=== PATIENT | female | born 1995 | race Caucasian/White ===

== ENCOUNTER → 2019-05-19 16:05 | Outpatient (CLI) | payer MEDICARE, SELFPAY ==
[2017-04-09 15:54] VITALS: BMI 20.7
== END ==
PROVIDERS: PCP Pediatrics; Referring Provider Otolaryngology; Visit Provider Otolaryngology
DX: J02.9 Acute pharyngitis, unspecified (principal)
CPT/HCPCS: 87804

== ENCOUNTER → 2020-01-02 15:31 | Outpatient (CLI) | payer MEDICARE, SELFPAY ==
[2017-04-09 15:54] VITALS: BMI 20.7
[2020-01-04 20:07] LABS: Chlamydia By Nucleic Acid AMP Negative (Negative)
[2020-01-05 01:54] LABS: Gonococcus By Nucleic Acid AMP Negative (Negative)
== END ==
PROVIDERS: PCP Pediatrics; Visit Provider Family Medicine
DX: Z11.3 Encounter for screening for infections with a predominantly sexual mode of transmission (principal)
CPT/HCPCS: 87491; 87591

== ENCOUNTER 2020-08-20 14:55 | Emergency (ER) | payer MEDICARE, MEDICAID, SELFPAY ==
[2020-08-20 14:57] VITALS: BP 107/58; PULSE 82; RESP 18; TEMP 36.8; O2SAT 98; BMI 20.2
[2020-08-20 15:14] VITALS: BP 109/75; PULSE 85; RESP 16; O2SAT 100
[2020-08-20] MEDS: Ondansetron 4 MG/2 ML Vial IV (15:31)
[2020-08-20] MEDS: Ketorolac 15 MG/ML Vial IV (15:31)
[2020-08-20] MEDS: 0.9% Normal Saline 1,000 ML 999 ML IV (15:35)
[2020-08-20 15:41] LABS: Absolute Lymphocyte Count 1.54 X10^3/uL (0.83-4.51); Absolute Neutrophil Count 2.6 X10^3/uL (2.0-7.7); Basophil# 0.04 X10^3/uL; Basophil% 0.8 % (0-1); Eosinophils% 2.1 % (0-5); Hematocrit 39.5 % (37-47); Lymphocyte # 1.54 X10^3/ul (0.83-4.51); Lymphocyte % 31.8 % (19-41); Mean Corp Hgb Conc 32.9 g/dL (32-36); Mean Corpuscular Hgb 29.4 pg (27.0-32.0); Mean Corpuscular Volume 89.4 fL (81-99); Mean Platelet Vol. 11.7 fl (6.2-12.0); Monocyte# 0.54 X10^3/uL; Monocyte% 11.1 % (0-10); NRBC Flagged by Analyzer 0 % (0-5); Neutrophil # 2.62 X10^3/uL (2.7-7.7); Platelet Count 237 K/mm3 (150-450); RBC Distribution Width CV 11.6 % (11.6-14.6); Red Blood Count 4.42 M/mm3 (4.2-5.4); White Blood Count 4.9 K/mm3 (4.4-11.0)
[2020-08-20 15:58] LABS: Internal QC Validated? YES +Cl - CLEAR BKGD; Pregnancy, Serum, hCG Quali. NEGATIVE Negative
[2020-08-20 16:01] LABS: Anion Gap 2 (5-15); BUN 11 mg/dL (7-18); BUN/Creat Ratio 17.6 RATIO (10-20); Calcium,Total 9.3 mg/dL (8.5-10.1); Chloride 106 mmol/L (98-107); Creatinine, Serum 0.62 mg/dL (0.55-1.02); EST Glomerular Filtration Rate 125 mL/min (>60); Est Glom Filt Rate - Afr Amer 151 mL/min (>60); Estimated Creatinine Clearance 123.08 ml/min; Glucose 92 mg/dL (74-106); Potassium 3.7 mmol/L (3.5-5.1); Sodium Level 138 mmol/L (136-145)
[2020-08-20 16:29] LABS: Bacteria 0 SEEN /hpf (None Seen); Mucous, Urine 0 SEEN /hpf (<or=2+); White Blood Cells 0 SEEN /hpf (0-5)
--- NOTE | 2020-08-20 16:49 | ED.VIS.GI ---
HPI HPI - GI History of Present Illness Chief Complaint: Flank Pain Narrative Narrative: Patient presenting for evaluation secondary to flank pain and abdominal pain. Patient reports that she had a relatively sudden onset of right-sided flank and abdominal pain that started this morning. She describes it as a sharp waxing and waning type pain that really does not have any sort of exacerbating relieving factors. Patient reports that she has urinary urgency, she thinks that she urinated out some clear stuff. She is concerned for the possibility of kidney stone. She denies any fevers. She denies any nausea vomiting or diarrhea associated with this. She is never really had any prior similar episodes in the past. Review of systems otherwise negative. Patient does not believe she is as she has a intrauterine device. PFSH PFSH Home Medications NK 04/09/17 [History Last Taken Unknown] naproxen 500 mg PO BID PRN #20 tab 08/20/20 [Rx Last Taken Unknown] Allergy/AdvReac Type Severity Reaction Status Date / Time No Known Allergies Allergy Verified 08/20/20 14:56 Surgical History History of placement of ear tubes Social History Smoking Status: Never smoker ROS ROS ED Constitutional Constitutional ED: Denies chills or fever(s) ENT ENT ED: Denies sore throat Cardiovascular Cardiovascular: Denies chest pain Respiratory/Chest Respiratory/Chest: Denies cough or dyspnea Gastrointestinal Gastrointestinal: Reports abdominal pain; Denies constipation, diarrhea or nausea Genitourinary Genitourinary ED: Reports urinary frequency and other Details: Flank pain ; Denies dysuria or hematuria Musculoskeletal Musculoskeletal: Denies myalgias Integumentary Denies rash Neurologic Neurologic: Denies paresthesias or weakness Psychiatric Psychiatric: Denies depression Endocrine Endocrinology: Denies polyuria Hematologic/Lymphatic Hematologic/Lymphatic: Denies easy bleeding or easy bruising Allergic/Immunologic Allergic/Immunologic ED: Denies urticaria EXAM Physical Exam Const Vital Signs: 08/20/20 14:57 08/20/20 15:12 08/20/20 15:14 Temperature 98.3 F Temperature Source Temporal Pulse Rate 82 85 Respiratory Rate 18 16 Respiratory Effort Normal Respiratory Pattern Normal Blood Pressure 107/58 L 109/75 Blood Pressure Mean 74 86 Pulse Ox 98 100 Oxygen Delivery Method Room Air Room Air Positive well nourished and well developed General Appearance ED: well developed and NAD HEENT normocephalic and atraumatic Eyes EOMs intact bilaterally General Eye ED: Negative for pale conjunctiva or scleral icterus Neck no lymphadenopathy and supple Resp normal respiratory effort and clear to auscultation bilaterally Cardio regular rate, regular rhythm, no murmurs and peripheral pulses 2+ throughout GI non-tender, non-distended and no masses GI Narrative: Patient complains of pain in the abdomen, but there is no reproducible tenderness to palpation Palpation: soft; Negative for guarding, rigid or rebound tenderness present Back/Spine no CVA tenderness Extremity full ROM General Extremety ED: Negative for edema General Extremity: Negative for edema Neuro moves all extremities and no sensory deficits noted Sensorium / Orientation: alert, oriented to person, oriented to place and oriented to time Motor Exam: strength 5/5 throughout Psych mental status grossly normal Skin Rashes: no rashes MDM MDM MDM Narrative Medical decision making narrative: Patient presented secondary to abdominal and flank pain. She was administered Toradol and Zofran as well as IV fluids. CBC unremarkable, no evidence of leukocytosis or shift. Chemistry shows normal renal function normal electrolytes. test was negative. I performed a bedside ultrasound on the patient, she does not seem to have asymmetric hydronephrosis on the right. Repeat evaluation of the patient at 1645 showed symptomatic improvement and her resting comfortably in the bed speaking on her cell phone to her significant other. The patient's urine is pending at this time. Patient is comfortable and nontoxic, and had flank pain that resolved I believe that she potentially passed kidney stone. Patient's urine will be followed up on by the oncoming physician. At that time the patient will be discharged home with outpatient follow-up with primary care. Lab Data Labs: Laboratory Results - last 24 hr 08/20/20 08/20/20 08/20/20 15:20 15:20 15:20 WBC 4.9 RBC 4.42 Hgb 13.0 Hct 39.5 MCV 89.4 MCH 29.4 MCHC 32.9 RDW Std Deviation 38.0 RDW Coeff of Walter 11.6 Plt Count 237 MPV 11.7 Immature Gran % (Auto) 0.200 Neut % (Auto) 54.0 Lymph % (Auto) 31.8 [place] % (Auto) 11.1 H Eos % (Auto) 2.1 Baso % (Auto) 0.8 Absolute Neuts (auto) 2.6 Absolute Lymphs (auto) 1.54 Nucleated RBC % 0 Sodium 138 Potassium 3.7 Chloride 106 Carbon Dioxide 30.0 Anion Gap 2 L BUN 11 Creatinine 0.62 Estim Creat Clear Calc 123.08 Est GFR (MDRD) Af Amer 151 Est GFR (MDRD) Non-Af 125 BUN/Creatinine Ratio 17.6 Glucose 92 Calcium 9.3 Serum , Qual NEGATIVE Discharge Plan Triage Chief Complaint: Flank Pain ED Provider: Trey Cavazos Dx/Rx/DC Orders Clinical Impression: Acute flank pain Prescriptions: New naproxen 500 mg tablet 500 mg PO BID PRN Qty: 20 RF: 0 No Action NK RF: 0 Primary Care Provider: Thomas Cano Referrals: Thomas Cano DO [Primary Care Provider] - 5-7 Days Disposition Disposition: Home, self care
[2020-08-20 17:11] LABS: Color, Urine Yellow (Yellow); Glucose, Dipstick Normal (Normal); Ketone-Dipstick Negative (Negative); Leukocyte Esterase-Dipstick Negative /ul (Negative); Nitrite-Dipstick Negative (Negative); Occult Blood-Urine 150 /ul (Negative); Protein-Dipstick Negative (Negative); Urine Bilirubin Dipstick Negative (Negative); Urine Clarity Sl. Cloudy (Clear); Urine Urobilinogen Normal (Normal)
[2020-08-20 17:35] LABS: Red Blood Cells-Urine 0-5 SEEN /hpf (0-5); Squamous Epithelial Cells - UA 0-5 SEEN /hpf (5-10)
[2020-08-20 17:54] VITALS: BP 121/81; PULSE 94; RESP 15; O2SAT 98
== END 2020-08-20 17:56 | disposition home or self-care (01) ==
PROVIDERS: Emergency Provider Emergency Medicine; PCP Family Medicine
DX: R10.9 Unspecified abdominal pain (principal); R39.15 Urgency of urination
CPT/HCPCS: 80048; 81001; 84703; 85025; 96374; 96375; 99285; J7030; A4216; J2405

== ENCOUNTER 2021-06-29 17:37 | Emergency (ER) | payer MEDICARE, MEDICAID, SELFPAY ==
[2021-06-29 17:38] VITALS: BP 110/80; PULSE 99; RESP 14; TEMP 36.6; O2SAT 99; BMI 20.4
--- NOTE | 2021-06-29 17:50 | ED.VIS.GI ---
HPI HPI - GI History of Present Illness Chief Complaint: Abd Pain Detail of Chief Complaint: Abdominal pain and diarrhea that started this morning Informant: patient Narrative Narrative: Patient presents to the emergency department with complaint of diarrhea that started this morning. Patient states that she has had more than 10 watery stools and she describes some diffuse abdominal cramping. She is had some nausea but no vomiting. Patient denies any fever. She describes some mild dysuria. Patient is on the Mirena contraceptive and has not missed any periods. Patient denies sick contacts. She denies eating undercooked foods. She denies blood in her stool or black tarry stool. PFSH PFSH Home Medications naproxen 500 mg PO BID PRN #20 tab 08/20/20 [Rx Last Taken Unknown] methylphenidate HCl 18 mg PO DAILY 06/29/21 [History Last Taken Unknown] ondansetron 4 mg PO Q8H PRN PRN #10 tab 06/29/21 [Rx Last Taken Unknown] risperidone 1 mg PO DAILY 06/29/21 [History Last Taken Unknown] Allergy/AdvReac Type Severity Reaction Status Date / Time No Known Allergies Allergy Verified 06/29/21 17:38 Surgical History History of placement of ear tubes Social History Smoking Status: Never smoker ROS ROS ED Constitutional Constitutional ED: Reports systems reviewed and no addt'l complaints, except as documented; Denies body ache(s), change in weight or chills Eyes Eyes: Denies acute decrease in peripheral vision, change in vision, double vision or loss of vision ENT ENT ED: Reports none; Denies ear pain, lip swelling, loss taste/smell, neck pain, otalgia or sore throat Cardiovascular Cardiovascular: Reports none; Denies abdominal pain, chest pain with activity, leg edema, lightheadedness, palpitations, rapid heart rate or syncope Respiratory/Chest Respiratory/Chest: Reports none; Denies change in mental status, dry cough, dyspnea, hemoptysis, shortness of breath at rest or shortness of breath with exertion Gastrointestinal Gastrointestinal: Reports none, abdominal pain, diarrhea and nausea; Denies change in stool character, hematemesis, hematochezia, melena, rectal bleeding or vomiting Genitourinary Genitourinary ED: Reports none and dysuria; Denies abdominal discomfort, anuria, genital pain or polyuria Musculoskeletal Musculoskeletal: Reports none; Denies arthralgias, back pain, difficulty walking, extremity pain, muscle weakness or myalgias Integumentary Reports none; Denies abscess or rash Neurologic Neurologic: Reports none; Denies abnormal gait, confusion, focal weakness, frequent falls, headache(s), loss of vision, numbness, paresthesias, radicular pain, vertigo or weakness Psychiatric Psychiatric: Reports systems reviewed and no addt'l complaints, except as documented and none; Denies behavioral changes, confusion, difficulty concentrating, hallucinations, suicidal ideation, tactile hallucinations or visual hallucinations Endocrine Endocrinology: Denies none, cold intolerance, excessive sweating, fatigue or heat intolerance Hematologic/Lymphatic Hematologic/Lymphatic: Reports none; Denies anemia, easy bleeding or easy bruising Allergic/Immunologic Allergic/Immunologic ED: Denies as per HPI, none, lip swelling, mouth swelling, throat swelling, tongue swelling or hives EXAM Physical Exam Const Vital Signs: 06/29/21 17:38 Temperature 97.9 F Temperature Source Temporal Pulse Rate 99 Respiratory Rate 14 Blood Pressure 110/80 Blood Pressure Mean 90 Pulse Ox 99 Oxygen Delivery Method Room Air Positive well nourished and well developed General Appearance ED: well developed and NAD HEENT Reports TM's clear and moist mucous membranes normocephalic and atraumatic; Negative for trauma or tenderness Tympanic Membrane ED: Yes TM's clear Eyes PERRL and EOMs intact bilaterally General Eye ED: Negative for pale conjunctiva or scleral icterus Neck no lymphadenopathy, supple and no JVD General: Negative for tenderness Chest Wall inspection of chest normal and palpation of chest normal Chest: Negative for tenderness Resp normal respiratory effort and clear to auscultation bilaterally Effort and Inspection: Negative for respiratory distress or pain with movement Auscultation: Negative for rhonchi, wheezes or diminished lung sounds Cardio regular rate, regular rhythm, S1 normal heart sound, S2 normal heart sound and no murmurs Peripheral Pulses: pulses 2+ throughout GI normal to inspection, nondistended, normoactive bowel sounds, soft to palpation, non-distended and no masses GI Narrative: Patient has some mild diffuse tenderness on palpation. There is no rebound, rigidity, or peritoneal signs. Back/Spine no CVA tenderness and no thoracic nor lumbar tenderness Extremity normal to inspection General Extremety ED: Negative for edema General Extremity: Negative for edema Neuro oriented x3, CN's II-XII intact bilaterally, no sensory deficits noted and gait normal Sensorium / Orientation: awake, alert, oriented to person, oriented to place and oriented to time Motor Exam: strength 5/5 throughout and strength abnormal Psych mental status grossly normal Skin no rashes or lesions noted and no wounds MDM MDM MDM Narrative Medical decision making narrative: I recommended an IV and basic labs on arrival. Patient states she does not do well with IVs and does not want to have blood work or an IV. I did give her Zofran 4 mg ODT. Patient also received Imodium. Her abdomen is benign on exam. Suspect likely a viral gastroenteritis. I will write her a prescription for Zofran and advised her to take Imodium. Patient to return if persistent vomiting, diarrhea, dehydration, or worsening abdominal pain. Lab Data Attestation: I reviewed the patient's lab results. Labs: Laboratory Results - last 24 hr 06/29/21 17:55 Urine Color Yellow Urine Clarity Sl. Cloudy Urine pH 5.0 Ur Specific [place] 1.020 Urine Protein 30 H Urine Glucose (UA) Normal Urine Ketones Negative Urine Occult Blood Negative Urine Nitrite Negative Urine Bilirubin Negative Urine Urobilinogen Normal Ur Leukocyte Esterase Negative Urine RBC 5-10 SEEN Urine WBC 0-5 SEEN Ur Squamous Epith Cells 0-5 SEEN Urine Bacteria RARE Urine Mucus 1+ Discharge Plan Triage Chief Complaint: Abd Pain ED Provider: Julia Adkins Dx/Rx/DC Orders Clinical Impression: Viral gastroenteritis Instructions: ED Gastroenteritis, Viral (Adult) Prescriptions: New ondansetron [ondansetron] 4 MG tablet 4 mg PO Q8H PRN PRN (Reason: Nausea) Qty: 10 RF: 0 No Action naproxen 500 mg tablet 500 mg PO BID PRN Qty: 20 RF: 0 methylphenidate HCl 18 mg tablet extended release 24hr 18 mg PO DAILY RF: 0 risperidone 1 mg tablet 1 mg PO DAILY RF: 0 Primary Care Provider: Thomas Cano Referrals: Thomas Cano DO [Primary Care Provider] - 3-5 Days Disposition Disposition: Home, Self Care
[2021-06-29] MEDS: Ondansetron ODT 4 MG Tablet PO (18:01)
[2021-06-29] MEDS: Loperamide 2 MG Capsule PO (18:01)
[2021-06-29 18:11] LABS: Color, Urine Yellow (Yellow); Glucose, Dipstick Normal (Normal); Ketone-Dipstick Negative (Negative); Leukocyte Esterase-Dipstick Negative /ul (Negative); Nitrite-Dipstick Negative (Negative); Occult Blood-Urine Negative /ul (Negative); Protein-Dipstick 30 mg/dl (Negative); Urine Bilirubin Dipstick Negative (Negative); Urine Clarity Sl. Cloudy (Clear); Urine Urobilinogen Normal (Normal)
[2021-06-29 18:37] LABS: Bacteria RARE /hpf (None Seen); Mucous, Urine 1+ /hpf (<or=2+); Squamous Epithelial Cells - UA 0-5 SEEN /hpf (5-10); White Blood Cells 0-5 SEEN /hpf (0-5)
[2021-06-29 18:38] LABS: Red Blood Cells-Urine 5-10 SEEN /hpf (0-5)
== END 2021-06-29 19:03 | disposition home or self-care (01) ==
PROVIDERS: Emergency Provider Emergency Medicine; PCP Family Medicine; Visit Provider Emergency Medicine
DX: A08.4 Viral intestinal infection, unspecified (principal); Z79.899 Other long term (current) drug therapy
CPT/HCPCS: 81001; 99282

== ENCOUNTER 2021-09-27 23:17 | Emergency (ER) | payer MEDICARE, MEDICAID, SELFPAY ==
[2021-09-27 23:18] VITALS: BP 109/66; PULSE 81; RESP 16; TEMP 36.7; O2SAT 99; BMI 21.2
--- NOTE | 2021-09-27 23:24 | EDS_ITS ---
HPI HPI - URI History of Present Illness Chief Complaint: Other, Pain/Inj Informant: patient and parent Onset/Context/Timing Onset: Yesterday Context: Gradual Onset Timing: Continuous Quality: Throat pain/swelling with odynophagia Location: Entire throat Current Severity: Moderate Maximum Severity: Moderate Worsened by: Swallowing Relieved by: - (Nothing has not tried anything) Associated Symptoms Associated Symptoms: Negative for Headache, Nausea, Vomiting, Diarrhea, Shortness of Breath, Nonproductive cough, Hemoptysis and Productive Cough Narrative Narrative: Patient works at [employer], as a result of that she gets tested for COVID twice weekly and the last time she was tested was 2 days ago. Started getting a sore throat yesterday and now it is worse to the point of feeling like things are swollen. She is able to pass liquids but it is painful. She denies dyspnea, cough, fevers, chills, headache, nausea/vomiting. No new runny nose or congestion or earache. ROS ROS ED Constitutional Constitutional ED: Denies chills or fever(s) ENT ENT ED: Reports odynophagia, sore throat and throat swelling; Denies ear pain, loss taste/smell, nasal congestion, rhinorrhea or tongue swelling Cardiovascular Cardiovascular: Denies chest pain or palpitations Respiratory/Chest Respiratory/Chest: Reports cough; Denies dyspnea Gastrointestinal Gastrointestinal: Denies abdominal pain, diarrhea, nausea or vomiting Genitourinary Genitourinary ED: Denies dysuria or hematuria Musculoskeletal Musculoskeletal: Reports neck pain; Denies myalgias Integumentary Denies abscess or rash Neurologic Neurologic: Denies headache(s), paresthesias or weakness Psychiatric Psychiatric: Denies depression or suicidal thoughts Endocrine Endocrinology: Denies polydipsia or polyuria PFSH PFSH Medical History no medical history no medical history Home Medications naproxen 500 mg PO BID PRN #20 tab 08/20/20 [Rx Last Taken Unknown] methylphenidate HCl 18 mg PO DAILY 06/29/21 [History Last Taken Unknown] ondansetron 4 mg PO Q8H PRN PRN #10 tab 06/29/21 [Rx Last Taken Unknown] risperidone 1 mg PO DAILY 06/29/21 [History Last Taken Unknown] risperidone 3 mg PO QHS 09/27/21 [History Last Taken Unknown] Allergy/AdvReac Type Severity Reaction Status Date / Time No Known Allergies Allergy Verified 06/29/21 17:38 Surgical History History of placement of ear tubes Social History Smoking Status: Never smoker EXAM Physical Exam Const Vital Signs: 09/27/21 23:18 09/27/21 23:27 Temperature 98.1 F Temperature Source Oral Pulse Rate 81 Respiratory Rate 16 Respiratory Pattern Normal Blood Pressure 109/66 Blood Pressure Mean 80 Pulse Ox 99 Oxygen Delivery Method Room Air Positive well nourished and well developed General Appearance ED: well developed and NAD HEENT Reports moist mucous membranes HEENT Narrative: Hot potato voice without stridor or respiratory distress. Diffusely erythematous posterior oropharynx and bilateral palatine tonsils which are symmetric and not edematous, uvula is midline. No trismus. Tongue normal, no sublingual edema. normocephalic and atraumatic Throat: Negative for posterior oropharynx abnormal Eyes PERRL and EOMs intact bilaterally Neck supple and no meningeal signs Neck Narrative: Bilateral symmetric submandibular tender lymphadenopathy. Supple neck. No posterior lymphadenopathy. Resp normal respiratory effort and clear to auscultation bilaterally Cardio no murmurs Rate: regular rate Rhythm: regular rhythm Neuro oriented x3, CN's II-XII intact bilaterally and no sensory deficits noted Sensorium / Orientation: alert Motor Exam: strength 5/5 throughout Skin Lesions: no lesions Rashes: no rashes MDM MDM MDM Narrative Medical decision making narrative: Rapid COVID was performed and was negative. I did a rapid strep swab, it came out of the lab techs machine is invalid. The nurse repeated the swab and sent it down with the same result. Therefore the lab is going to send it for culture only. In the meantime, she does not have exudates or a high Centor score (her score is 2/4 since she has no fevers), so antibiotic treatment would only be indicated if her culture returns positive. Given that, I will give her a dose of Decadron 12 mg orally which hopefully will help significantly with her symptoms. I am not running a PCR since she gets COVID testing twice weekly. Discharge Plan Triage Chief Complaint: Other, Pain/Inj ED Provider: Bruce Chung Dx/Rx/DC Orders Clinical Impression: Acute pharyngitis Instructions: ED Pharyngitis, Report Pending Prescriptions: No Action naproxen 500 mg tablet 500 mg PO BID PRN Qty: 20 RF: 0 methylphenidate HCl 18 mg tablet extended release 24hr 18 mg PO DAILY RF: 0 risperidone 1 mg tablet 1 mg PO DAILY RF: 0 ondansetron [ondansetron] 4 MG tablet 4 mg PO Q8H PRN PRN (Reason: Nausea) Qty: 10 RF: 0 risperidone 3 mg tablet 3 mg PO QHS RF: 0 Primary Care Provider: Thomas Cano Referrals: Thomas Cano DO [Primary Care Provider] - 1 Week if not improving Activity Restrictions/Additional Instructions: Your strep culture is pending and will return in 2 days or so, if positive you will be called in an antibiotic. If negative, you will not be notified, this is more likely. The dose of steroids you received should help but takes 8-10 hours to start working but will then last for about a week. Disposition Disposition: Home, Self Care
[2021-09-28] MEDS: dexAMETHasone 4 MG Tablet 12 MG PO (00:54)
[2021-09-28 00:58] VITALS: BP 116/62; PULSE 68; RESP 16; O2SAT 97
== END 2021-09-28 01:00 | disposition home or self-care (01) ==
PROVIDERS: Emergency Provider Emergency Medicine; PCP Family Medicine; Visit Provider Emergency Medicine
DX: J02.9 Acute pharyngitis, unspecified (principal)
CPT/HCPCS: 87811; 87880; 99283

== ENCOUNTER 2023-01-12 18:05 | Emergency (ER) | payer MEDICARE, MEDICAID, SELFPAY ==
[2023-01-12 18:06] VITALS: BP 124/81; PULSE 111; RESP 18; TEMP 36.6; O2SAT 98; BMI 24.9
--- NOTE | 2023-01-12 18:19 | EX.ED.DYSGE1 ---
HPI History of Present Illness Chief Complaint: General Illness Informant: patient Narrative Narrative: Patient had symptoms that started today less than 12 hours worth of nausea, dry heaving, poor appetite and p.o. intake, diffuse sharp abdominal pains, myalgias all over along with some low-grade fevers over 100. She has been in contact with others that have had similar symptoms lately. No history of any abdominal surgeries. [facility] Medical History (Updated 01/12/23 @ 20:[address] Bruce Chung MD) ADHD Kidney stone Home Medications naproxen 500 mg tablet 500 mg PO BID PRN #20 tabs 08/20/20 [Rx Last Taken Unknown] methylphenidate HCl 18 mg tablet,extended release 24 hr 18 mg PO DAILY 06/29/21 [History Last Taken Unknown] ondansetron 4 mg disintegrating tablet 4 mg PO Q8H PRN PRN Nausea #10 tabs 06/29/21 [Rx Last Taken Unknown] risperidone 1 mg tablet 1 mg PO DAILY 06/29/21 [History Last Taken Unknown] risperidone 3 mg tablet 3 mg PO QHS 09/27/21 [History Last Taken Unknown] dicyclomine 10 mg capsule 20 mg (2 x 10 mg) PO Q6H PRN PRN abdominal pain #20 CAPSULES 01/12/23 [Rx Last Taken Unknown] ondansetron 4 mg disintegrating tablet 8 mg (2 x 4 mg) PO Q8H PRN PRN Nausea #20 tabs 01/12/23 [Rx Last Taken Unknown] Allergy/AdvReac Type Severity Reaction Status Date / Time No Known Allergies Allergy Verified 06/29/21 17:38 Surgical History History of placement of ear tubes Social History Smoking Status: Never smoker ROS ROS ED Constitutional Constitutional ED: Reports anorexia, fever(s) and malaise; Denies chills Eyes Eyes: Denies change in vision or diplopia ENT ENT ED: Denies rhinorrhea or sore throat Cardiovascular Cardiovascular: Denies chest pain or palpitations Respiratory/Chest Respiratory/Chest: Denies cough or dyspnea Gastrointestinal Gastrointestinal: Reports nausea and vomiting; Denies abdominal pain, diarrhea, hematemesis, hematochezia or melena Genitourinary Genitourinary ED: Denies dysuria, hematuria or urinary frequency Musculoskeletal Musculoskeletal: Reports back pain; Denies neck pain Integumentary Denies abscess or rash Neurologic Neurologic: Denies headache(s), paresthesias or weakness Psychiatric Psychiatric: Denies anxiety or suicidal thoughts EXAM Physical Exam Const Vital Signs: 01/12/23 18:06 01/12/23 18:11 Temperature 97.8 F Temperature Source Temporal Pulse Rate 111 H Respiratory Rate 18 Respiratory Pattern Normal Blood Pressure 124/81 H Blood Pressure Mean 95 Pulse Ox 98 Oxygen Delivery Method Room Air Positive well nourished and well developed General Appearance ED: well developed and NAD HEENT Reports moist mucous membranes normocephalic and atraumatic Eyes PERRL and EOMs intact bilaterally Neck full ROM and supple Resp normal respiratory effort and clear to auscultation bilaterally Cardio regular rate, regular rhythm and no murmurs GI non-distended GI Narrative: Mild diffuse lower abdominal tenderness without guarding or rebound or palpable mass, distention. Auscultation: normoactive bowel sounds Palpation: soft Back/Spine no CVA tenderness General Back: other FROM Extremity normal to inspection General Extremety ED: Negative for edema, pulses abnormal or tenderness General Extremity: Negative for edema or pulses abnormal Neuro oriented x3, CN's II-XII intact bilaterally and no sensory deficits noted Sensorium / Orientation: awake and alert Motor Exam: strength 5/5 throughout Skin no rashes or lesions noted and no wounds MDM MDM MDM Narrative Medical decision making narrative: Obtain some basic labs and urinalysis which are unremarkable, urine negative, patient feeling better after IV fluids, Zofran, dicyclomine. Suspect viral gastritis, high prevalence in the community at the current time anecdotally. Supportive care advised, will give her a work note as well as prescriptions for the above medicines. Lab Data Attestation: I reviewed the patient's lab results. Labs: Laboratory Results - last 24 hr 01/12/23 01/12/23 18:55 19:00 WBC 6.7 RBC 4.46 Hgb 12.9 Hct 39.6 MCV 88.8 MCH 28.9 MCHC 32.6 RDW Std Deviation 37.8 RDW Coeff of [place] 11.7 Plt Count 193 MPV 11.7 Immature Gran % (Auto) 0.400 Neut % (Auto) 81.5 H Lymph % (Auto) 6.3 L [place] % (Auto) 11.2 H Eos % (Auto) 0.3 Baso % (Auto) 0.3 Absolute Neuts (auto) 5.5 Absolute Lymphs (auto) 0.42 L Nucleated RBC % 0 Differential Comment SCANNED Sodium 136 Potassium 3.6 Chloride 104 Carbon Dioxide 25.0 Anion Gap 7 BUN 10 Creatinine 0.68 Estim Creat Clear Calc 121.92 Est GFR (MDRD) Af Amer 134 Est GFR (MDRD) Non-Af 111 BUN/Creatinine Ratio 14.7 Glucose 90 Calcium 9.3 Urine Color Yellow Urine Clarity Clear Urine pH 7.0 Ur Specific [place] 1.010 Urine Protein 15 H Urine Glucose (UA) Normal Urine Ketones 15 H Urine Occult Blood 50 H Urine Nitrite Negative Urine Bilirubin Negative Urine Urobilinogen Normal Ur Leukocyte Esterase 25 H Urine RBC 0-5 SEEN Urine WBC 0-5 SEEN Ur Squamous Epith Cells 0-5 SEEN Urine Bacteria 0 SEEN Urine Mucus 0 SEEN Urine Test Negative Discharge Plan Triage Chief Complaint: General Illness ED Provider: Bruce Chung Dx/Rx/DC Orders Clinical Impression: Diffuse abdominal pain, Viral gastritis Instructions: ED Gastritis (Adult) Prescriptions: New dicyclomine 10 mg capsule 20 mg PO Q6H PRN PRN (Reason: abdominal pain) Qty: 20 0RF ondansetron [ondansetron] 4 mg tablet,disintegrating 8 mg PO Q8H PRN PRN (Reason: Nausea) Qty: 20 0RF No Action naproxen 500 mg tablet 500 mg PO BID PRN Qty: 20 0RF methylphenidate HCl 18 mg tablet extended release 24hr 18 mg PO DAILY Patient Comments: TAKE 1 TABLET DAILY IN THE MORNING NEEDED risperidone 1 mg tablet 1 mg PO DAILY Patient Comments: TAKE 1 TABLET BY MOUTH EVERY DAY IN THE MORNING ondansetron [ondansetron] 4 MG tablet 4 mg PO Q8H PRN PRN (Reason: Nausea) Qty: 10 0RF risperidone 3 mg tablet 3 mg PO QHS Patient Comments: TAKE 1 TABLET BY MOUTH EVERY DAY Stand Alone Forms: ED Work / School Excuse Primary Care Provider: Thomas Cano Referrals: Thomas Cano DO [Primary Care Provider] - 3-5 Days if not improving Disposition Disposition: Home, Self Care
[2023-01-12] MEDS: 0.9% Normal Saline (1000mL) 1,000 ML 999 ML IV (18:55)
[2023-01-12] MEDS: Ondansetron 4 MG/2 ML Vial IV (18:55)
[2023-01-12] MEDS: Dicyclomine 10 MG Capsule 20 MG PO (18:55)
[2023-01-12 19:08] LABS: Bacteria 0 SEEN /hpf (None Seen); Mucous, Urine 0 SEEN /hpf (<or=2+)
[2023-01-12 19:09] LABS: Absolute Lymphocyte Count 0.42 X10^3/uL (0.83-4.51); Absolute Neutrophil Count 5.5 X10^3/uL (2.0-7.7); Basophil# 0.02 X10^3/uL; Basophil% 0.3 % (0-1); Eosinophil# 0.02 X10^3/uL; Eosinophils% 0.3 % (0-5); Hematocrit 39.6 % (37-47); Hemoglobin 12.9 g/dL (12.0-15.0); Lymphocyte # 0.42 X10^3/ul (0.83-4.51); Lymphocyte % 6.3 % (19-41); Mean Corp Hgb Conc 32.6 g/dL (32-36); Mean Corpuscular Hgb 28.9 pg (27.0-32.0); Mean Corpuscular Volume 88.8 fL (81-99); Mean Platelet Vol. 11.7 fl (6.2-12.0); Monocyte# 0.75 X10^3/uL; Monocyte% 11.2 % (0-10); NRBC Flagged by Analyzer 0 % (0-5); Neutrophil # 5.46 X10^3/uL (2.7-7.7); Neutrophil % 81.5 % (47-70); POSITIVE DIFFERENTIAL YES; Platelet Count 193 K/mm3 (150-450); RBC Distribution Width CV 11.7 % (11.6-14.6); RBC Distribution Width SD 37.8 fl (35.1-43.9); Red Blood Count 4.46 M/mm3 (4.2-5.4); White Blood Count 6.7 K/mm3 (4.4-11.0)
[2023-01-12 19:11] LABS: Color, Urine Yellow (Yellow); Glucose, Dipstick Normal (Normal); Ketone-Dipstick 15 mg/dl (Negative); Leukocyte Esterase-Dipstick 25 /ul (Negative); Nitrite-Dipstick Negative (Negative); Occult Blood-Urine 50 /ul (Negative); Protein-Dipstick 15 mg/dl (Negative); Urine Bilirubin Dipstick Negative (Negative); Urine Clarity Clear (Clear); Urine Urobilinogen Normal (Normal)
[2023-01-12 19:11] LABS: Differential Indicated SCAN CRITERIA MET
[2023-01-12 19:22] LABS: Anion Gap 7 (5-15); BUN 10 mg/dL (7-18); BUN/Creat Ratio 14.7 RATIO (10-20); Calcium,Total 9.3 mg/dL (8.5-10.1); Chloride 104 mmol/L (98-107); Creatinine, Serum 0.68 mg/dL (0.55-1.02); EST Glomerular Filtration Rate 111 mL/min (>60); Est Glom Filt Rate - Afr Amer 134 mL/min (>60); Estimated Creatinine Clearance 121.92 ml/min; Glucose 90 mg/dL (74-106); Potassium 3.6 mmol/L (3.5-5.1); Sodium Level 136 mmol/L (136-145)
[2023-01-12 19:32] LABS: Differential Comment SCANNED
[2023-01-12 19:33] LABS: Red Blood Cells-Urine 0-5 SEEN /hpf (0-5); Squamous Epithelial Cells - UA 0-5 SEEN /hpf (5-10); White Blood Cells 0-5 SEEN /hpf (0-5)
[2023-01-12 19:36] LABS: Internal QC Validated? YES +Cl - CLEAR BKGD; Pregnancy, Urine Negative Negative
== END 2023-01-12 20:21 | disposition home or self-care (01) ==
PROVIDERS: Emergency Provider Emergency Medicine; PCP Family Medicine; Visit Provider Emergency Medicine
DX: A08.4 Viral intestinal infection, unspecified (principal); R10.84 Generalized abdominal pain
CPT/HCPCS: 80048; 81001; 81025; 85025; 96374; 99282; J7030; A4216; J2405

== ENCOUNTER → 2023-05-06 | Outpatient (CLI) | payer MEDICARE, MEDICAID, SELFPAY ==
--- OUTSIDE RECORDS SUMMARY | 2023-05-06 16:13 | XMS RPT_ITS | CCD ---
Author Name Unknown Address [address] [place] [address] Organization [facility] Care Team Providers Care Twist Packer Name Role Phone FLORA KHAN Unavailable Unavailable REFERRED, SELF Unavailable Unavailable FLORA KHAN Unavailable Unavailable FLORA KHAN Unavailable Unavailable REFERRED, SELF Unavailable Unavailable FLORA KHAN A Unavailable Unavailable FLORA KHAN A Unavailable Unavailable REFERRED, SELF Unavailable Unavailable FLORA KHAN A Unavailable Unavailable ROBERT CUEVAS Unavailable Unavailable REFERRED, SELF Unavailable Unavailable FLORA KHAN Unavailable Unavailable FLORA KHAN Unavailable Unavailable REFERRED, SELF Unavailable Unavailable FLORA KHAN Unavailable Unavailable Rosie Cano DO Primary Care Provider Rosie Cano DO Primary Care Provider ROSIE CANO Primary Care Unavailable ROSIE CANO Primary Care Unavailable LAURA ALVARADO Referring Unavailable ROSIE CANO Primary Care Unavailable LAURA ALVARADO Attending Unavailable ROSIE CANO Primary Care Unavailable Medications Current Medications Medication Drug Class(es) Dates Sig (Normalized) Sig (Original) levonorgestrel 0.285890 mg/hr intrauterine system (5 sources) Progestin, Progestin-containi ng Intrauterine Device Start: 03-22-2018 End: 03-22-2023 levonorgestrel (MIRENA) 20 mcg/24 hours (5 yrs) 52 mg IUD 1 Each by INTRAUTERINE route continuous. 0 03/22/2018 03/22/2023 Active Completed/Discontinued Medications Medication Drug Class(es) Dates Sig (Normalized) Sig (Original) 24 hr methylphenidate hydrochloride 36 mg extended release oral tablet (7 sources) Central Nervous System Stimulant Start: 05-26-2005 CONCERTA 36 MG TAB Take one(1) tablet daily. 0 05/26/2005 Active Problems Active Problems Problem Classification Problem Date Documented Da te Episodic/Chronic Other upper respiratory infections (1 source) Acute upper respiratory infection; Translations: [Acute upper respiratory infection, unspecified] 03-29-2023 Episodic Past or Other Problems Problem Classification Problem Date Documented Date Episodic/Chronic Contraceptive and procreative management (5 sources) Intrauterine contraceptive device in situ; Translations: [Encounter for routine checking of intrauterine contraceptive device] Onset: 08-18-2022 Episodic Immunizations and screening for infectious disease (3 sources) Suspected disease caused by 2019-nCoV; Translations: [Suspected COVID-19 virus infection] Onset: 08-18-2022 Episodic Other screening for suspected conditions (not mental disorders or infectious disease) (2 sources) Patient encounter status; Translations: [Encounter for screening for malignant neoplasm of cervix] Onset: 08-18-2022 Episodic Sprains and strains (7 sources) Sprain of talofibular ligament of right ankle; Translations: [Sprain of other ligament of right ankle, initial encounter] Onset: 05-24-2018 05-24-2018 Episodic Results Test Name Value Interpretation Reference Range Facil ity Vital Signs Date Time Vital Sign Value Performing Clinician Faci lity 03-29-2023 11:22-0500 Body temperature 98.49 [degF] Oleksandr Pastrana MD Work Phone: [facility] 03-29-2023 11:22-0500 Body weight 76.93 kg Oleksandr Pastrana MD Work Phone: [facility] 03-29-2023 11:22-0500 Diastolic blood pressure 72 mm[Hg] Oleksandr Pastrana MD Work Phone: [facility] 03-29-2023 11:22-0500 Heart rate 86 /min Oleksandr Pastrana MD Work Phone: [facility] 03-29-2023 11:22-0500 Respiratory rate 18 /min Oleksandr Pastrana MD Work Phone: [facility] 03-29-2023 11:22-0500 SaO2% (BldA) [Mass fraction] 98 % Oleksandr Pastrana MD Work Phone: [facility] 03-29-2023 11:22-0500 Systolic blood pressure 112 mm[Hg] Oleksandr Pastrana MD Work Phone: [facility] 08-18-2022 16:10-0400 Body weight 75.84 kg Laura Alvarado MD Work Phone: [facility] 08-18-2022 16:10-0400 Diastolic blood pressure 82 mm[Hg] Laura Alvarado MD Work Phone: [facility] 08-18-2022 16:10-0400 Systolic blood pressure 120 mm[Hg] Laura Alvarado MD Work Phone: [facility] 11-17-2021 10:49-0400 Body temperature 97.59 [degF] Zakiya Yaz [employer].CHILD AND ADOLESCENT PSYCHIATRIST Work Phone: [facility] 11-17-2021 10:49-0400 Body weight 59.88 kg Zakiya Yaz [employer].CHILD AND ADOLESCENT PSYCHIATRIST Work Phone: [facility] 11-17-2021 10:49-0400 Diastolic blood pressure 70 mm[Hg] Zakiya Yaz [employer].CHILD AND ADOLESCENT PSYCHIATRIST Work Phone: [facility] 11-17-2021 10:49-0400 Heart rate 66 /min Zakiya Yaz [employer].CHILD AND ADOLESCENT PSYCHIATRIST Work Phone: [facility] 11-17-2021 10:49-0400 Respiratory rate 16 /min Zakiya Yaz [employer].CHILD AND ADOLESCENT PSYCHIATRIST Work Phone: [facility] 11-17-2021 10:49-0400 SaO2% (BldA) [Mass fraction] 99 % Zakiya Yaz [employer].CHILD AND ADOLESCENT PSYCHIATRIST Work Phone: [facility] 11-17-2021 10:49-0400 Systolic blood pressure 122 mm[Hg] Zakiya Yaz [employer].CHILD AND ADOLESCENT PSYCHIATRIST Work Phone: [facility] Encounters Encounter Date Encounter Type Care Provider Facility Start: 03-30-2023 Telephone encounter Peace Bernie Pyle [employer].CHILD AND ADOLESCENT PSYCHIATRIST Work Phone: [facility] Procedures Date Procedure Procedure Detail Performing Clinician Start: 08-27-2022 Us transvaginal Laura Alvarado MD Work Phone: Start: 08-18-2022 Iadna chlamydia trachomatis amplified probe tq Laura Alvarado MD Work Phone: Start: 08-18-2022 Urine test visual color cmprsn meths Laura Alvarado MD Work Phone: Plan of Treatment Date Care Activity Detail Author Start: 08-18-2025 Pap Testing Pap Testing [facility] Start: 08-18-2025 Screening for malign ant neoplasm of cervix Pap Testing [facility] Start: 12-18-2022 Covid-19 Vaccine () Covid-19 Vaccine () [facility] Start: 12-18-2022 Influenza vaccination [facility] Start: 04-19-2022 DEPRESSION ASSESSMENT DEPRESSION ASS ESSMENT [facility] Start: 12-18-2021 Influenza vaccination INFLUENZA (#1) [facility] Start: 11-17-2021 End: 12-01-2021 SARS-CoV-2 (COVID-19) RNA [Presence] in Respiratory specimen by NUHA with probe detection [facility] Work Phone: Immunizations Immunization Date Immunization Notes Care Provider Fa [facility] 02-04-1998 diphtheria, tetanus toxoids and acellular pertussis vaccine Zakiya Mukherjee [employer] Work Phone: [facility] Work Phone: 02-04-1998 haemophilus influenz ae type b vaccine, HbOC conjugate Zakiya Mukherjee [employer] Work Phone: [facility] Work Phone: 02-04-1998 trivalent poliovirus vaccine, live, oral Zakiyamoriah Mukherjee [employer].CHILD AND ADOLESCENT PSYCHIATRIST Work Phone: [facility] Work Phone: 11-06-1997 measles, mumps and rubella virus vaccine Zakiya Mukherjee [employer].CHILD AND ADOLESCENT PSYCHIATRIST Work Phone: [facility] Work Phone: 08-03-1997 hepatitis B vaccine, pediatric or pediatric/adolescent dosage Zakiyamoriah Mukherjee [employer].CHILD AND ADOLESCENT PSYCHIATRIST Work Phone: [facility] Work Phone: 05-23-1997 diphtheria, tetanus toxoids and acellular pertussis vaccine Zakiya Yaz [employer].CHILD AND ADOLESCENT PSYCHIATRIST Work Phone: [facility] Work Phone: 05-23-1997 haemophilus influenz ae type b vaccine, HbOC conjugate Zakiya Yaz [employer].[facility] Work Phone: [facility] Work Phone: 03-07-1997 diphtheria, tetanus toxoids and acellular pertussis vaccine Zakiya Yaz [employer].CHILD AND ADOLESCENT PSYCHIATRIST Work Phone: [facility] Work Phone: 03-07-1997 haemophilus influenz ae type b vaccine, HbOC conjugate Zakiya Yaz [employer].[facility] Work Phone: [facility] Work Phone: 03-07-1997 trivalent poliovirus vaccine, live, oral Zakiya Yaz [employer].[facility] Work Phone: [facility] Work Phone: 01-01-1997 diphtheria, tetanus toxoids and acellular pertussis vaccine Zakiya Yaz [employer].[facility] Work Phone: [facility] Work Phone: 01-01-1997 haemophilus influenz ae type b vaccine, HbOC conjugate Zakiya Yaz [employer].[facility] Work Phone: [facility] Work Phone: 01-01-1997 trivalent poliovirus vaccine, live, oral Zakiya Yaz [employer].CHILD AND [employer]OLESCENT PSYCHIATRIST Work Phone: [facility] Work Phone: 1996 hepatitis B vaccine, pediatric or pediatric/adolescent dosage Zakiya Yaz [employer] Work Phone: [facility] Work Phone: 1996 hepatitis B vaccine, pediatric or pediatric/adolescent dosage Zakiya Yaz [employer] Work Phone: [facility] Work Phone: Payers Date Payer Category Payer Unknown [employer] HMO [id number] 2020-Present [phone] [address] [place] [address] HMO [id number] 2020 Unknown [employer]M [employer] S [employer] BL[employer]IELD AN[employer]M MED[employer] HMO [id number] 2020-Present [phone] [address] [place] [address] HMO [id number] 2020 Unknown [id number] 2018 Medicaid MEDICAID [facility] MEDICAID [id number] 2018-Present [phone] [address] [place] [address] Medicaid [id number] 2018 Medicaid MEDICAID [facility] MEDICAID [id number] 2018-Present [phone] [address] [place] [address] Medicaid [id number] 2018 Medicaid [id number] Medicare [id number] Unknown [id number] Social History Date Type Detail Facility Start: 08-18-2022 Tobacco smoking stat [facility] Never smoked tobacco [facility] Work Phone: Start: 11-17-2021 End: 03-29-2023 Alcohol intake Current non-drinker of alcohol (finding) [facility] Start: 1995 Sex Assigned At Not on file [facility] Start: 11-07-2021 End: 11-17-2021 Exposure to SARS-CoV-2 (event) Not sure [facility] Work Phone: Start: 08-18-2022 Tobacco use and exposure Smokeless tobacco non-user [facility] Start: 08-18-2022 End: 01-14-2023 History of Social function [facility] Start: 08-18-2022 End: 01-14-2023 Tobacco use panel [facility] National Score (1-100), lower number is lower risk 92 [facility] Clinical Notes 11-17-2021 to 03-30-2023 Telephone Encounter - Mony Nguyen LPN - 03/30/2023 8:48 AM ESTTelephone Encounter - Emily Reyes - 03/30/2023 7:47 AM ESTTelephone Encounter - Emily Reyes - 03/30/2023 7:47 AM EST Note Date & Type Note Facility 03-30-2023 Miscellaneous Notes Patient returned call and went over results, notes from express care provider with understanding. Left message for patient to return call. ----- Message from Pecae Ellis APRN.CNP sent at 03/30/2023 7:35 AM EST ----- Please advise patient the test for RSV was positive. RSV is a respiratory virus, supportive care at home is indicated. If Kalpana develops worsening symptoms or experiences any respiratory difficulty, she should be seen in ER. COVID and flu were negative. Peace Ellis APRN.CNP documented in this encounter [facility] 03-29-2023 Note HNO ID: [id number] Author: Oleksandr Pastrana MD Service: ? Author Type: Physician Type: Progress Notes Filed: 03/29/2023 11:43 AM Note Text: Patient presents with: Sore Throat: Congestion x3 days HPI: Feeling sick for 3 days. Positive symptoms: some Cough and wheezing, Sore throat, Nasal Congestion, Rhinorrhea, Post nasal drainage, malaise, fatigue Negative symptoms: Fever, Chills, Body Aches, Headache, Nausea, Vomiting, Diarrhea, OTC: none. Had COVID illness in December. 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 PAST MEDICAL HISTORY Diagnosis Date ADHD (attention deficit hyperactivity disorder) MEDICATIONS: Current Outpatient Medications Medication Sig risperiDONE (RISPERDAL) 1 mg tablet CONCERTA 36 MG TAB Take one(1) tablet daily. No current facility-administered medications for this visit. ALLERGIES: ALLERGIES No Known Allergies VITALS: BP 112/72 Pulse 86 Temp 36.9 ?C (98.5 ?F) Resp 18 Wt 76.9 kg (169 lb 9.6 oz) LMP (LMP Unknown) SpO2 98% PHYSICAL EXAM: GEN: mildly ill appearing HEENT: PERRL, EOMI, conjunctiva clear Ears: canals clear. TMs without erythema, bulge, or effusion Sinuses: non-tender frontal sinus, non-tender maxillary sinuses Throat: moist mucous membranes, mild erythema, no exudate Neck: supple, no thyromegaly, no lymphadenopathy HEART: regular rate and rhythm, no murmurs LUNGS: clear to auscultation, no wheezes or crackles, no increased WOB ASSESSMENT/PLAN: 1. URI, acute - ICD9: 465.9, ICD10: J06.9 - suspect viral URI - Discussed supportive care treatment with rest, cold medicine, and analgesia. - COVID AND INFLUENZA A/B AND RSV NAAT, ROUTINE Oleksandr Pastrana MD [facility] 03-29-2023 History of Presen t illness Narrative Patient presents with: Sore Throat: Congestion x3 days HPI: Feeling sick for 3 days. Positive symptoms: some Cough and wheezing, Sore throat, Nasal Congestion, Rhinorrhea, Post nasal drainage, malaise, fatigue Negative symptoms: Fever, Chills, Body Aches, Headache, Nausea, Vomiting, Diarrhea, OTC: none. Had COVID illness in December. 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 PAST MEDICAL HISTORY Diagnosis Date ADHD (attention deficit hyperactivity disorder) MEDICATIONS: Current Outpatient Medications Medication Sig risperiDONE (RISPERDAL) 1 mg tablet CONCERTA 36 MG TAB Take one(1) tablet daily. No current facility-administered medications for this visit. ALLERGIES: ALLERGIES No Known Allergies VITALS: BP 112/72 Pulse 86 Temp 36.9 C (98.5 F) Resp 18 Wt 76.9 kg (169 lb 9.6 oz) LMP (LMP Unknown) SpO2 98% PHYSICAL EXAM: GEN: mildly ill appearing HEENT: PERRL, EOMI, conjunctiva clear Ears: canals clear. TMs without erythema, bulge, or effusion Sinuses: non-tender frontal sinus, non-tender maxillary sinuses Throat: moist mucous membranes, mild erythema, no exudate Neck: supple, no thyromegaly, no lymphadenopathy HEART: regular rate and rhythm, no murmurs LUNGS: clear to auscultation, no wheezes or crackles, no increased WOB ASSESSMENT/PLAN: 1. URI, acute - ICD9: 465.9, ICD10: J06.9 - suspect viral URI - Discussed supportive care treatment with rest, cold medicine, and analgesia. - COVID & INFLUENZA A/B & RSV NAAT, ROUTINE Oleksandr Pastrana MD documented in this encounter [facility] 01-15-2023 Miscellaneous Notes Patient notified of results, verbalized understanding of instructions given. Lilia Vásquez MA Please call and let patient know she was positive for COVID-19. Recommend quarantine for 5 days from first day of symptoms and a mask for another 5 days after that. If not improving follow-up with PCP. documented in this encounter [facility] 01-14-2023 Note HNO ID: [id number] Author: Lance Ramirez APRN.CHILD AND ADOLESCENT PSYCHIATRIST Service: ? Author Type: Nurse Practitioner Type: Progress Notes Filed: 01/14/2023 2:06 PM Note Text: Subjective HPI Nontoxic-appearing female presents urgent care requesting PCR COVID-19 testing. Patient states tested positive at home with a COVID-19 test as well as positive at work. States on Wednesday she was seen in the ED diagnosed with gastritis. Did have a fever then. Presents today for evaluation. States overall feels well. Mild nasal congestion. No OTC medication use. States COVID-19 is present in her workplace. 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 Denies any fever body aches chills productive cough chest pain shortness of breath pleuritic pain hemoptysis nausea vomiting abdominal pain change in bowel or bladder habits. Past medical history prescription medication use and allergies reviewed. .Patient presents with: Fever: Congestion x 3 days History reviewed. No pertinent past medical history. History reviewed. No pertinent surgical history. ALLERGIES Patient has no known allergies. MEDICATIONS levonorgestrel (MIRENA) 20 mcg/24 hours (5 yrs) 52 mg IUD 1 Each by INTRAUTERINE route continuous. RISPERIDONE 0.5 MG TAB take one tablet po daily at bedtime. risperidone 0.25 mg ORAL Tab takes one tablet twice daily po CONCERTA 36 MG TAB Take one(1) tablet daily. polyethylene glycol 3350(MIRALAX 100 % ORAL POWDER) 1/2 to 1 capful daily as needed (Patient not taking: No sig reported) History reviewed. No pertinent family history. Social History Tobacco Use Smoking status: Never Smokeless tobacco: Never Vaping Use Vaping Use: Some days Substance Use Topics Alcohol use: No Drug use: Never BP 111/75 Pulse 69 Temp 36.7 ?C (98 ?F) Resp 16 Wt 73.8 kg (162 lb 9.6 oz) LMP (LMP Unknown) SpO2 97% Review of Systems Constitutional: Negative for chills, fever and malaise/fatigue. HENT: Positive for congestion. Negative for ear discharge, ear pain, sinus pain and sore throat. Eyes: Negative for blurred vision, pain, discharge and redness. Respiratory: Negative for cough, hemoptysis, sputum production, shortness of breath, wheezing and stridor. Cardiovascular: Negative for chest pain. Gastrointestinal: Negative for abdominal pain, diarrhea, nausea and vomiting. Musculoskeletal: Negative for myalgias. Skin: Negative for itching and rash. Neurological: Negative for dizziness and headaches. Objective Physical Exam Constitutional: General: She is not in acute distress. Appearance: She is not toxic-appearing. HENT: Head: Normocephalic. Nose: Nose normal. Mouth/Throat: Mouth: Mucous membranes are moist. Pharynx: Oropharynx is clear. No oropharyngeal exudate or posterior oropharyngeal erythema. Eyes: Pupils: Pupils are equal, round, and reactive to light. Cardiovascular: Rate and Rhythm: Normal rate. Pulmonary: Effort: Pulmonary effort is normal. No respiratory distress. Breath sounds: No wheezing, rhonchi or rales. Musculoskeletal: Cervical back: Normal range of motion. Lymphadenopathy: Cervical: No cervical adenopathy. Skin: General: Skin is warm and dry. Neurological: General: No focal deficit present. Mental Status: She is alert. ASSESSMENT/PLAN: 1. Suspected COVID-19 virus infection - ICD9: V01.79, ICD10: Z20.822 - COVID NAAT, UPPER RESPIRATORY, ROUTINE Diagnosis suspected COVID-19. PCR test obtained. [facility] return to work work guidelines discussed. Work note provided. Patient was educated on supportive therapies. Patient will follow up with primary care provider as needed. Patient was instructed to immediately proceed to emergency room for any new, worsening, or symptoms lasting longer than anticipated. The patient's clinical presentation is otherwise unremarkable at this time. Based on exam and clinical finding, the patient is stable for discharge. Plan of care was discussed with patient. Patient verbalizes understanding and agrees to plan of care. This note was generated using [employer] software. It may contain errors in wording, punctuation, or spelling. Lance Ramirez APRN.[facility] 08-27-2022 Note HNO ID: [id number] Author: RT Rosina(R) Service: Radiology Author Type: Technologist Type: Progress Notes Filed: 08/27/2022 4:26 PM Note Text: Radiology Service Progress Note PATIENT NAME: Kalpana Segovia DATE OF SERVICE: August 27, 2022 TIME: 4:26 PM PATIENT IDENTITY VERIFICATION COMPLETED USING TWO (2) IDENTIFIERS: Name and Date of confirmed by patient verbally. FALL SCREENING: Has the patient had 2 falls in the last year or 1 fall with injury or currently using an Ambulatory Assistive Device (Walker, Cane, Wheelchair, Crutches, etc.)? No PATIENT GENDER DATA: Female. status: : No status: N/A PATIENT RELEVANT IMPLANT DATA REVIEWED: Not Applicable RADIOLOGY DEPARTMENT: Ultrasound PERIPHERAL IV DATA: Not applicable SIGNED BY: Radha Bowie Rdms August 27, 2022 4:26 PM [facility] 08-27-2022 History of Presen t illness Narrative Radiology Service Progress Note PATIENT NAME: Kalpana Segovia DATE OF SERVICE: August 27, 2022 TIME: 4:26 PM PATIENT IDENTITY VERIFICATION COMPLETED USING TWO (2) IDENTIFIERS: Name and Date of confirmed by patient verbally. FALL SCREENING: Has the patient had 2 falls in the last year or 1 fall with injury or currently using an Ambulatory Assistive Device (Walker, Cane, Wheelchair, Crutches, etc.)? No PATIENT GENDER DATA: Female. status: : No status: N/A PATIENT RELEVANT IMPLANT DATA REVIEWED: Not Applicable RADIOLOGY DEPARTMENT: Ultrasound PERIPHERAL IV DATA: Not applicable SIGNED BY: Radha Bowie Rdms August 27, 2022 4:26 PM documented in this encounter [facility] 08-18-2022 Note HNO ID: [id number] Author: Laura Alvarado MD Service: ? Author Type: Physician Type: Progress Notes Filed: 08/18/2022 5:01 PM Note Text: Kalpana is a 26 year old who presents for an annual gynecologic exam. Menses: occ light spotting - Mirena IUD. Contraception: IUD HPV vaccine: unsure Last Pap: today History of abnormal pap: No Last mammogram: never OB History No obstetric history on file. Material Manager History LMP: LMP Unknown, IUD Age at Menarche: Age at First : Age at Menopause: Material Manager History Comments: Sexual Activity: Yes; Male Contraception: I.U.D. History reviewed. No pertinent past medical history.No past surgical history on file.No family history on file.SOCIAL HISTORY Social History Tobacco Use Smoking status: Never Smokeless tobacco: Never Vaping Use Vaping Use: Some days Substance Use Topics Alcohol use: No Drug use: Never REVIEW OF SYSTEMS Abdomen: No abdominal pain, nausea, vomiting, diarrhea, or constipation. No bloating, early satiety, indigestion, or increased flatulence. Bladder: No dysuria, gross hematuria, urinary frequency, urinary urgency, or incontinence. Breast: No breast lumps, nipple d/c, overlying skin changes, redness or skin retraction. Allergies and current medication updated:Yes EXAM: BP 120/82 Wt 167 lb 3.2 oz (75.8kg) GENERAL: pleasant, female in no apparent distress BREAST: soft, non-tender, symmetric, no dominant mass, normal nipple-areolar complex, no lymphadenopathy, and no nipple discharge CHEST: Normal inspiratory effort ABDOMEN: soft, non-tender, and no masses PELVIC: external genitalia normal, normal Bartholin's glands, urethra, [place]'s glands, no vulvar lesions, no cervical lesions, good vaginal support, physiologic discharge present, normal appearing perineal body and perianal region BIMANUAL: uterus normal size, shape and consistency, no adnexal masses, and non-tender RECTOVAGINAL: deferred. NEURO: alert and oriented x3,exam grossly non-focal EXTREMITIES: normal ASSESSMENT/PLAN: 1) Health maintenance: Pap done with HPV. Nutrition, exercise and routine health maintenance exams reviewed. 2) Contraception: IUD. Contraceptive options reviewed and information provided. Check pelvic US to confirms IUD location as unable to see strings. 3) STD screening: Accepted STD check for Gonorrhea and Chlamydia with trich 4) Follow up one year or sooner as needed Laura Alvarado MD [facility] 08-18-2022 History of Presen t illness Narrative Kalpana is a 26 year old who presents for an annual gynecologic exam. Menses: occ light spotting - Mirena IUD. Contraception: IUD HPV vaccine: unsure Last Pap: today History of abnormal pap: No Last mammogram: never OB History No obstetric history on file. Material Manager History LMP: LMP Unknown, IUD Age at Menarche: Age at First : Age at Menopause: Material Manager History Comments: Sexual Activity: Yes; Male Contraception: I.U.D. History reviewed. No pertinent past medical history.No past surgical history on file.No family history on file.SOCIAL HISTORY Social History Tobacco Use Smoking status: Never Smokeless tobacco: Never Vaping Use Vaping Use: Some days Substance Use Topics Alcohol use: No Drug use: Never REVIEW OF SYSTEMS Abdomen: No abdominal pain, nausea, vomiting, diarrhea, or constipation. No bloating, early satiety, indigestion, or increased flatulence. Bladder: No dysuria, gross hematuria, urinary frequency, urinary urgency, or incontinence. Breast: No breast lumps, nipple d/c, overlying skin changes, redness or skin retraction. Allergies and current medication updated:Yes EXAM: BP 120/82 Wt 167 lb 3.2 oz (75.8kg) GENERAL: pleasant, female in no apparent distress BREAST: soft, non-tender, symmetric, no dominant mass, normal nipple-areolar complex, no lymphadenopathy, and no nipple discharge CHEST: Normal inspiratory effort ABDOMEN: soft, non-tender, and no masses PELVIC: external genitalia normal, normal Bartholin's glands, urethra, [place]'s glands, no vulvar lesions, no cervical lesions, good vaginal support, physiologic discharge present, normal appearing perineal body and perianal region BIMANUAL: uterus normal size, shape and consistency, no adnexal masses, and non-tender RECTOVAGINAL: deferred. NEURO: alert and oriented x3,exam grossly non-focal EXTREMITIES: normal ASSESSMENT/PLAN: 1) Health maintenance: Pap done with HPV. Nutrition, exercise and routine health maintenance exams reviewed. 2) Contraception: IUD. Contraceptive options reviewed and information provided. Check pelvic US to confirms IUD location as unable to see strings. 3) STD screening: Accepted STD check for Gonorrhea and Chlamydia with trich 4) Follow up one year or sooner as needed Laura Alvarado MD documented in this encounter [facility] 11-18-2021 Miscellaneous Notes Phone call placed patient advised (see prior provider encounter) Patient verbalized understanding, agreed with plan of care. Janet Vega LPN You tested positive for COVID-19 Follow the CDC guidelines for isolation: 1. Everyone, regardless of vaccination status, should stay home for 5 days. 2. If you have no symptoms or your symptoms are resolving after 5 days, you can leave your house. 3. Continue to wear a mask around others for 5 additional days. If you have a fever, continue to stay home until your fever resolves, even if it is longer than 5 days. Please monitor your symptoms, and for any worrisome symptoms, call your primary care provider or schedule a visit with [facility]. A test is not recommended to return to work/school when meeting the above criteria. documented in this encounter [facility] 11-17-2021 Instructions Zakiya Mukherjee APRN.CNP - 11/17/2021 11:00 AM EDT covid test ordered You will be notified in 24 -48 hours, results available on [employer] Home isolation until covid results are back Rest, increase water intake Motrin or Tylenol as needed for fever or pain. Salt water gargles, chloraseptic spray or lozenges as needed for sore throat. Warm beverages, honey. Nasal saline spray as needed Cool mist humidifier at night Tylenol (generic acetaminophen) 500 mg-2 tabs every 8 hrs. as needed for fever and aches Ibuprofen 600 mg (3-200mg tablets) every 6 hours -Sudafed (generic is fine), behind the counter, 2x30 mg tabs twice daily as needed for congestion -Mucinex (generic is fine) Guaifenesin 1200 mg twice daily to help with cough and to thin out mucus * Seek medical care immediately, call 911, go to ER if you have chest pain, difficulty breathing, shortness of breath, inability to swallow. documented in this encounter [facility] 11-17-2021 History of Presen t illness Narrative Subjective The history is provided by the patient and a parent. No english language learner tutor was used. HPI Kalpana Segovia is a 26 year old female who presents today for CC of covid symptoms , rapid positive, needs testing Symptoms include: Fever (?100.4F): No or Chills: No Cough: Yes Shortness of breath: No or Difficulty breathing: No Fatigue: Yes Muscle aches: Yes Headache: No New loss of smell or taste: No Sore throat: No Nasal congestion: Yes or Rhinorrhea: Yes Nausea: No or Vomiting: No Diarrhea: No OTC meds/remedies that patient has tried: acetaminophen. High risk category assessment No high risk factors Exposures: Sick contacts? Yes Family or close contacts with confirmed/probable COVID-19 in last 14 days? Yes BP 122/70 Pulse 66 Temp 36.4 C (97.6 F) Resp 16 Wt 59.9 kg (132 lb) LMP 02/07/2018 SpO2 99% Social History Tobacco Use Smoking status: Never Smoker Smokeless tobacco: Never Used Substance Use Topics Alcohol use: No Drug use: Not on file No past medical history on file. I have confirmed and edited as necessary, the [facility] Review of Systems Constitutional: Positive for malaise/fatigue. Negative for chills and fever. HENT: Positive for congestion and sinus pain. Negative for ear pain and sore throat. Respiratory: Positive for cough. Negative for sputum production, shortness of breath and wheezing. Cardiovascular: Negative for chest pain. Gastrointestinal: Negative for abdominal pain, diarrhea, nausea and vomiting. Musculoskeletal: Positive for myalgias. Neurological: Positive for headaches. Objective Physical Exam Vitals and nursing note reviewed. HENT: Head: Normocephalic and atraumatic. Right Ear: Tympanic membrane, ear canal and external ear normal. Left Ear: Tympanic membrane, ear canal and external ear normal. Nose: Mucosal edema, congestion and rhinorrhea present. Mouth/Throat: Pharynx: Uvula midline. Posterior oropharyngeal erythema (mild) present. No oropharyngeal exudate. Cardiovascular: Rate and Rhythm: Normal rate and regular rhythm. Heart sounds: Normal heart sounds. Pulmonary: Effort: Pulmonary effort is normal. Breath sounds: Normal breath sounds. Lymphadenopathy: Head: Right side of head: No submental, submandibular or tonsillar adenopathy. Left side of head: No submental, submandibular or tonsillar adenopathy. Cervical: No cervical adenopathy. Skin: General: Skin is warm and dry. Neurological: Mental Status: She is alert. Psychiatric: Mood and Affect: Affect normal. ASSESSMENT/PLAN: 1. Suspected COVID-19 virus infection - ICD9: V01.79, ICD10: Z20.822 Home isolation Testing ordered Comfort measures discussed - see patient instructions. When to seek higher level of care Notified in 24-48 hours with results, available on mychart - 2019 CORONAVIRUS Diagnosis and treatment plan were discussed and questions were answered to the patient's satisfaction. Pt acknowledged understanding of concepts and follow up plan. Specific signs and symptoms that would indicate the need for higher level of care were discussed in detail warranting prompt ER evaluation. Zakiya Mukherjee APRN.CNP documented in this encounter [facility] Diagnosis Encounter for screening for malignant neoplasm of cervix- Primary Screening for malignant neoplasm of the cervix Encounter for routine checking of intrauterine contraceptive device (IUD) Intrauterine device surveillance Surveillance of previously prescribed intrauterine contraceptive device Screen for STD (sexually transmitted disease) Screening examination for venereal disease [facility] Diagnosis Intrauterine device surveillance Surveillance of previously prescribed intrauterine contraceptive device [facility] Diagnosis URI, acute- Primary Acute upper respiratory infections of unspecified site documented in this encounter [facility] for referral (narrative)* Diagnostic Procedure Only (Routine) - Authorized Specialty Diagnoses / Procedures Referred By Contac t Referred To Contact US IMAGING Diagnoses Intrauterine device surveillance Procedures US FEMALE PELVIS TRANSVAG US TRANSVAGINAL Laura Alvarado MD [address] [place] [address] Us Imaging Referral ID Status Reason Start Date Expiration Date Visits Requested Visits Authorized [id number] Authorized Auto-Generat ed Referral 08/18/2022 09/17/2023 1 1 [facility] for referral (narrative)* Diagnostic Procedure Only (Routine) - Closed Specialty Diagnoses / Procedures Referred By Contlizzette agarwal Referred To Contact US IMAGING Diagnoses Intrauterine device surveillance Procedures US FEMALE PELVIS TRANSVAG US TRANSVAGINAL Laura Alvarado MD [address] [place] [address] [place] [address] Referral ID Status Reason Start Date Expiration Date V isits Requested Visits Authorized [id number] Closed Auto-Generate d Referral 08/18/2022 09/17/2023 1 1 [facility] for visit Narrative* Diagnostic Procedure Only (Routine) - Closed Specialty Diagnoses / Procedures Referred By Contlizzette t Referred To Contact US IMAGING Diagnoses Intrauterine device surveillance Procedures US FEMALE PELVIS TRANSVAG US TRANSVAGINAL Laura Alvarado MD [address] [place] [address] [place] [address] Referral ID Status Reason Start Date Expiration Date V isits Requested Visits Authorized [id number] Closed Auto-Generate d Referral 08/18/2022 09/17/2023 1 1 [facility] Summary Purpose Family History No Family History Records FoundNo Family History Records Found Advance Directives No Advanced Directives Records FoundNo Advanced Directives Records Found Health Concerns Infection Onset Date Last Indicated Resolved Time COVID-19 Rule-Out 11/17/2021 11/17/2021 Infection Onset Date Last Indicated Resolved Time COVID-19 Confirmed 11/17/2021 11/17/2021 Infection Onset Date Last Indicated Resolved Time COVID-19 Rule-Out 01/14/2023 01/14/2023 01/15/2023 7:11 AM EDT COVID-19 Confirmed 01/14/2023 01/14/2023 Infection Onset Date Last Indicated Resolved Time RSV 03/29/2023 03/29/2023 Additional Source Comments INFORMATION SOURCE (unrecogn ized section and content) DATE CREATED AUTHOR AUTHOR'S ORGANIZ ATION 03/31/2023 [facility] Source Comments (unrecognize d section and content) In the event this informatio n is protected by the Federal Confidentiality of Alcohol and Drug Abuse Patient Records regulations: The Federal rules restrict any use of the information to criminally investigate or prosecute any alcohol or drug abuse patient.[facility] event this information is protected by the Federal Confidentiality of Alcohol and Drug Abuse Patient Records regulations: The Federal rules restrict any use of the information to criminally investigate or prosecute any alcohol or drug abuse patient.[facility] the event this information is protected by the Federal Confidentiality of Alcohol and Drug Abuse Patient Records regulations: The Federal rules restrict any use of the information to criminally investigate or prosecute any alcohol or drug abuse patient.[facility] the event this information is protected by the Federal Confidentiality of Alcohol and Drug Abuse Patient Records regulations: The Federal rules restrict any use of the information to criminally investigate or prosecute any alcohol or drug abuse patient.[facility] the event this information is protected by the Federal Confidentiality of Alcohol and Drug Abuse Patient Records regulations: The Federal rules restrict any use of the information to criminally investigate or prosecute any alcohol or drug abuse patient.[facility] the event this information is protected by the Federal Confidentiality of Alcohol and Drug Abuse Patient Records regulations: The Federal rules restrict any use of the information to criminally investigate or prosecute any alcohol or drug abuse patient.[facility] the event this information is protected by the Federal Confidentiality of Alcohol and Drug Abuse Patient Records regulations: The Federal rules restrict any use of the information to criminally investigate or prosecute any alcohol or drug abuse patient.[facility] Reason for Visit (unrecogniz ed section and content) Reason Comments Results Reason Comments Yearly Exam Reason Comments Sore Throat Congestion x3 days Care Teams (unrecognized sec tion and content) Twist Packer Relationship Specialty Start Date End Date Rosie Cano DO [address] [place], [place] [id number] PCP - General Family Practice 07/12/17 Twist Packer Relationship Specialty Start Date End Date Rosie Cano DO [address] [place] [id number] PCP - General Family Medicine 07/12/17 Twist Packer Relationship Specialty Start Date End Date Rosie Cano DO [address] [place], [place] [id number] PCP - General Family Medicine 07/12/17 Twist Packer Relationship Specialty Start Date End Date Rosie Cano DO [address] [place] [address] PCP - General Family Medicine 07/12/17 Twist Packer Relationship Specialty Start Date End Date Rosie Cano DO [address] [place] [address] PCP - [facility] 07/12/17 Twist Packer Relationship Specialty Start Date End Date Rosie Cano DO [address] [place] [id number] PCP - [facility] 07/12/17 FOR RECORDS PERTAINING TO PATIENTS WHO ARE OR HAVE BEEN ENROLLED IN A CHEMICAL DEPENDENCY/SUBSTANCEABUSE PROGRAM, SOME INFORMATION MAY BE OMITTED. This clinical summary was aggregated from multiple sources. Caution should be exercised in using it in the provision of clinical care. This summary normalizes information from multiple sources, and as a consequence, information in this document may materially change the coding, format and clinical context of patient data. In addition, data may be omitted in some cases. CLINICAL DECISIONS SHOULD BE BASED ON THE PRIMARY CLINICAL RECORDS. [facility] [employer] [facility]. provides no warranty or guarantee of the accuracy or completeness of information in this document.
[2023-05-06 17:49] LABS: Absolute Lymphocyte Count 2.03 X10^3/uL (0.83-4.51); Absolute Neutrophil Count 4.6 X10^3/uL (2.0-7.7); Basophil# 0.05 X10^3/uL; Basophil% 0.7 % (0-1); Eosinophil# 0.08 X10^3/uL; Eosinophils% 1.1 % (0-5); Hematocrit 37.2 % (37-47); Hemoglobin 11.9 g/dL (12.0-15.0); Lymphocyte # 2.03 X10^3/ul (0.83-4.51); Mean Corpuscular Hgb 28.4 pg (27.0-32.0); Mean Corpuscular Volume 88.8 fL (81-99); Mean Platelet Vol. 12.3 fl (6.2-12.0); Monocyte# 0.74 X10^3/uL; Monocyte% 9.8 % (0-10); NRBC Flagged by Analyzer 0 % (0-5); Neutrophil # 4.61 X10^3/uL (2.7-7.7); Neutrophil % 61.1 % (47-70); Platelet Count 236 K/mm3 (150-450); RBC Distribution Width CV 11.9 % (11.6-14.6); RBC Distribution Width SD 38.1 fl (35.1-43.9); Red Blood Count 4.19 M/mm3 (4.2-5.4); White Blood Count 7.5 K/mm3 (4.4-11.0)
[2023-05-06 17:57] LABS: Color, Urine Yellow (Yellow); Glucose, Dipstick Normal (Normal); Ketone-Dipstick 5 mg/dl (Negative); Leukocyte Esterase-Dipstick 25 /ul (Negative); Nitrite-Dipstick Negative (Negative); Occult Blood-Urine 25 /ul (Negative); Protein-Dipstick 15 mg/dl (Negative); Specific Gravity, Urine 1.015 (1.002-1.030); Urine Bilirubin Dipstick Negative (Negative); Urine Clarity Clear (Clear); Urine Urobilinogen Normal (Normal); Urine pH 6.5 (5.0 - 8.0)
[2023-05-06 18:00] LABS: Internal QC Validated? YES +Cl - CLEAR BKGD; Pregnancy, Serum, hCG Quali. NEGATIVE Negative
[2023-05-06 18:22] LABS: AST(SGOT) 14 U/L (15-37); Alanine Aminotransfer ALT/SGPT 17 U/L (13-56); Albumin, Serum 4.1 g/dL (3.2-5.0); Alkaline Phosphatase 54 U/L (45-117); Anion Gap 7 (5-15); BUN 13 mg/dL (7-18); BUN/Creat Ratio 17.5 RATIO (10-20); Calcium,Total 9.3 mg/dL (8.5-10.1); Chloride 107 mmol/L (98-107); Creatinine, Serum 0.74 mg/dL (0.55-1.02); EST Glomerular Filtration Rate 100 mL/min (>60); Est Glom Filt Rate - Afr Amer 121 mL/min (>60); Glucose 90 mg/dL (74-106); Potassium 3.7 mmol/L (3.5-5.1); Protein, Total 8.1 g/dL (6.4-8.2); Sodium Level 138 mmol/L (136-145)
== END | disposition home or self-care (01) ==
LOC: BFHLAB 15:50
PROVIDERS: PCP Family Medicine; Visit Provider Family Medicine
DX: R10.9 Unspecified abdominal pain (principal)
CPT/HCPCS: 36415; 80053; 81002; 84703; 85025

== ENCOUNTER → 2024-02-14 | Outpatient (CLI) | payer MEDICARE, MEDICAID, SELFPAY ==
[2024-02-14 18:12] LABS: Absolute Lymphocyte Count 1.65 X10^3/uL (0.83-4.51); Absolute Neutrophil Count 3.9 X10^3/uL (2.0-7.7); Basophil# 0.04 X10^3/uL; Basophil% 0.6 % (0-1); Eosinophil# 0.06 X10^3/uL; Hematocrit 38.9 % (37-47); Hemoglobin 12.6 g/dL (12.0-15.0); Lymphocyte # 1.65 X10^3/ul (0.83-4.51); Lymphocyte % 26.3 % (19-41); Mean Corp Hgb Conc 32.4 g/dL (32-36); Mean Corpuscular Hgb 28.4 pg (27.0-32.0); Mean Corpuscular Volume 87.6 fL (81-99); Mean Platelet Vol. 12.7 fl (6.2-12.0); Monocyte# 0.65 X10^3/uL; Monocyte% 10.4 % (0-10); NRBC Flagged by Analyzer 0 % (0-5); Neutrophil # 3.85 X10^3/uL (2.7-7.7); Neutrophil % 61.2 % (47-70); Platelet Count 208 K/mm3 (150-450); RBC Distribution Width CV 12.1 % (11.6-14.6); RBC Distribution Width SD 39.1 fl (35.1-43.9); Red Blood Count 4.44 M/mm3 (4.2-5.4); White Blood Count 6.3 K/mm3 (4.4-11.0)
[2024-02-14 18:30] LABS: Hepatitis B Surface Antibody Non-Reactive
[2024-02-14 18:33] LABS: AST(SGOT) 13 U/L (15-37); Alanine Aminotransfer ALT/SGPT 20 U/L (13-56); Albumin, Serum 3.9 g/dL (3.2-5.0); Alkaline Phosphatase 66 U/L (45-117); Anion Gap 5 (5-15); BUN 11 mg/dL (7-18); BUN/Creat Ratio 17.1 RATIO (10-20); Calcium,Total 9.6 mg/dL (8.5-10.1); Chloride 107 mmol/L (98-107); Cholesterol 168 mg/dL (200); Creatinine, Serum 0.64 mg/dL (0.55-1.02); EST Glomerular Filtration Rate 117 mL/min (>60); Est Glom Filt Rate - Afr Amer 142 mL/min (>60); Globulin 4.1 g/dL (2.2-4.2); Glucose 93 mg/dL (74-106); High Density Lipoprotein 74 mg/dL; Potassium 3.7 mmol/L (3.5-5.1); Sodium Level 138 mmol/L (136-145); Triglycerides 64 mg/dL; Very Low Density Lipoprotein 13 mg/dL (5-40)
--- OUTSIDE RECORDS SUMMARY | 2024-02-14 19:55 | XMS RPT_ITS | CCD ---
Author Organization [facility] Care Team Providers Care Radio 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 Operator Name Role Phone LFORA KHAN Unavailable Unavailable REFERRED, SELF Unavailable Unavailable ERIN, FLORA A Unavailable Unavailable ERIN, FLORA A Unavailable Unavailable REFERRED, SELF Unavailable Unavailable ERIN, FLORA A Unavailable Unavailable ERIN, FLORA A Unavailable Unavailable REFERRED, SELF Unavailable Unavailable ERIN, FLORA A Unavailable Unavailable ROBERT CUEVAS Unavailable Unavailable REFERRED, SELF Unavailable Unavailable ERIN, FLORA A Unavailable Unavailable FLORA KHAN A Unavailable Unavailable REFERRED, SELF Unavailable Unavailable FLORA KHAN A Unavailable Unavailable Rosie Cano DO Primary Care Provider Rosie Cano DO Primary Care Provider ROSIE CANO Primary Care Unavailable ROSIE CANO Primary Care Unavailable LAURA ALVARADO Referring Unavailable ROSIE CANO Primary Care Unavailable LAURA ALVARADO Attending Unavailable ROSIE CANO Primary Care Unavailable Medications Current Medications Medication Drug Class(es) Dates Sig (Normalized) Sig (Original) levonorgestrel 0.489790 mg/hr intrauterine system (5 sources) Progestin, Progestin-containi ng Intrauterine Device Start: 03-22-2018 End: 03-22-2023 levonorgestrel (MIRENA) 20 mcg/24 hours (5 yrs) 52 mg IUD 1 Each by INTRAUTERINE route continuous. 0 03/22/2018 03/22/2023 Active Comment on above: 1 Each by INTRAUTERI NE route continuous. Completed/Discontinued Medications Medication Drug Class(es) Dates Sig (Normalized) Sig (Original) 24 hr methylphenidate hydrochloride 36 mg extended release oral tablet (7 sources) Central Nervous System Stimulant Start: 05-26-2005 CONCERTA 36 MG TAB Take one(1) tablet daily. 0 05/26/2005 Active Comment on above: Take one(1) tablet d aily. polyethylene glycol 3350 49180 mg powder for oral solution (6 sources) Osmotic Laxative Start: 08-22-2007 End: 03-29-2023 polyethylene glycol 3350(MIRALAX 100 % ORAL POWDER) 1/2 to 1 capful daily as needed 255g 0 08/22/2007 03/29/2023 Discontinued Comment on above: 1/2 to 1 capful maggie y as needed risperiDONE 1 mg oral tablet (14 sources) Atypical Antipsychotic Start: 03-08-2023 risperiDONE (RISPERDAL) 1 mg tablet Start: 09-23-2007 End: 03-29-2023 take 1 tablet by mouth once daily at bedtime RISPERIDONE 0.5 MG TAB take one tablet po daily at bedtime. 0 09/23/2007 03/29/2023 Discontinued Start: 08-03-2006 End: 03-29-2023 take 1 tablet by mouth twice daily risperidone 0.25 mg ORAL Tab takes one tablet twice daily po 0 08/03/2006 03/29/2023 Discontinued Comment on above: takes one tablet twi ce daily po take one tablet po d aily at bedtime. Problems Active Problems Problem Classification Problem Date [...] Name Value Interpretation Reference Range Facil ity CNPNon 03-30-2023 CNPN Telephone (UCWSTR) -------- LUISITO SOLANO ([id number]) 1995 F Date Time Provider Department 03/30/23 PEACE QUICK During your visit today, we recorded the following information about you: Emily Reyes 03/30/2023 7:47 AM Signed ----- Message from Peace Quick APRN.UNIT AIDE sent at 03/30/2023 7:35 AM EST ----- Please advise patient the test for RSV was positive. RSV is a respiratory virus, supportive care at home is indicated. If Luisito develops worsening symptoms or experiences any respiratory difficulty, she should be seen in ER. COVID and flu were negative. Peace Quick APRN.Emily Beal 03/30/2023 7:48 AM Signed Left message for patient to return call. Moy Hackett LPN 03/30/2023 8:49 AM Signed Patient returned call and went over results, notes from express care provider with understanding. Allergies As of Date: 03/30/2023 (No Known Allergies) Date Reviewed: 03/29/2023 Reviewed by: Gavino Mariano MA - Fully Assessed Reason for Visit: Results [95] Prescriptions as of 03/30/2023 - risperiDONE (RISPERDAL) 1 mg tablet - CONCERTA 36 MG TAB Take one(1) tablet daily. Problem List As Of Date 03/30/2023 Noted Resolved Sprain of anterior talofibular ligament of righ*05/24/2018 Encounter Status:Closed by MOY HACKETT LPN on 03/30/23 [facility] CNOVon 03-29-2023 CNOV Office Visit (UCWSTR ) -------- LUISITO SOLANO ([id number]) 1995 F Date Time Provider Department 03/29/23 11:15 AM OLEKSANDR PASTRANA [facility]WSTR During your visit today, we recorded the following information about you: Temperature Pulse Respiration Blood pressure 98.5 degrees 86/minute 18/minute 112/72 Weight 76.9 kg Oleksandr Pastrana MD 03/29/2023 11:43 AM Signed Patient presents with: Sore Throat: Congestion x3 days HPI: Feeling sick for 3 days. Positive symptoms: some Cough and wheezing, Sore throat, Nasal Congestion, Rhinorrhea, Post nasal drainage, malaise, fatigue Negative symptoms: Fever, Chills, Body Aches, Headache, Nausea, Vomiting, Diarrhea, OTC: none. Had COVID illness in December. 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 #:[id number] Prescriptions as of 03/29/2023 - risperiDONE (RISPERDAL) 1 mg tablet - CONCERTA 36 MG TAB Take one(1) tablet daily. Problem List As Of Date 03/29/2023 Noted Resolved Sprain of anterior talofibular ligament of righ*05/24/2018 Medications Discontinued During This Encounter Prescriptions - polyethylene glycol 3350(MIRALAX 100 % ORAL POWDER) (Discontinued) No sig reported - RISPERIDONE 0.5 MG TAB (Discontinued) take one tablet po daily at bedtime. - risperidone 0.25 mg ORAL Tab (Discontinued) takes one tablet twice daily po Letter Text Encounter Status:Closed by OLEKSANDR PASTRANA on 03/29/23 Normal [facility] COVID AND INFLUENZA A/B AND RSV NAAT, ROUTINEon 03-29-2023 SARS-CoV-2 (COVID-19) RNA NUHA+probe Ql (Unsp spec) COVID 19 RESULT: Not detected The method used is RT-PCR or an equivalent NAAT method. Reference Range (the expected result in uninfected individuals): Not detected INFLUENZA A PCR: Not detected INFLUENZA B PCR: Not detected RSV PCR: Detected Abnormal [facility] Comment on above: Performed By: #### C VFLRS #### [facility] CLIA [id number] [address] [place] [address] [place] Krys 01-15-2023 PAULINA Telephone (UCWSTR) -------- LUISITO SOLANO ([id number]) 1995 F Date Time Provider Department 01/15/23 FAHEEM BOYLE [facility] During your visit today, we recorded the following information about you: Faheem Boyle, DEBORAH 01/15/2023 7:22 AM Signed Please call and let patient know she was positive for COVID-19. Recommend quarantine for 5 days from first day of symptoms and a mask for another 5 days after that. If not improving follow-up with PCP. Gavino Mariano MA 01/15/2023 8:17 AM Signed Patient notified of results, verbalized understanding of instructions given. Gavino Mariano MA Allergies As of Date: 01/15/2023 (No Known Allergies) Date Reviewed: 01/14/2023 Reviewed by: Jennifer Ramirez APRN.UNIT AIDE - Fully Assessed Reason for Visit: Results [95] Prescriptions as of 01/15/2023 - levonorgestrel (MIRENA) 20 mcg/24 hours (5 yrs) 52 mg IUD 1 Each by INTRAUTERINE route continuous. - RISPERIDONE 0.5 MG TAB take one tablet po daily at bedtime. - polyethylene glycol 3350(MIRALAX 100 % ORAL POWDER) 1/2 to 1 capful daily as needed - risperidone 0.25 mg ORAL Tab takes one tablet twice daily po - CONCERTA 36 MG TAB Take one(1) tablet daily. Problem List As Of Date 01/15/2023 Noted Resolved Sprain of anterior talofibular ligament of righ*05/24/2018 Encounter Status:Closed by GAVINO MARIANO on 01/15/23 [facility] CNOVon 01-14-2023 CNOV Office Visit (UCWSTR ) -------- LUISITO SOLANO ([id number]) 1995 F Date Time Provider Department 01/14/23 1:30 PM ROBERTJAZZJENNIFER [facility] During your visit today, we recorded the following information about you: Temperature Pulse Respiration Blood pressure 98 degrees 69/minute 16/minute 111/75 Weight 73.8 kg Jennifer Ramirez APRN.UNIT AIDE 01/14/2023 2:06 PM Signed Subjective HPI Nontoxic-appearing female presents urgent care [...] in her workplace. Does work at a long term. Denies any fever body aches chills productive [...] ROUTINE Diagnosis suspected COVID-19. PCR test obtained. CDC return to work work guidelines discussed. Work [...] of care. This note was generated using Guidesly software. It may contain errors in wording, punctuation, or spelling. Jennifer Ramirez APRN.Jennifer Alva APRN.HARISH 01/14/2023 1:46 PM Signed How to Manage Common Symptoms Associated with COVID for Adults Fever- Fever is a temperature over 100.4 F and can occur when the body is fighting an infection. To help treat a fever: Drink plenty of fluids and stay well hydrated. Eat small amounts of easy to digest food. Rest. Your body needs rest to recover, but getting up and moving around the house frequently is a good idea. You should try to continue doing your normal daily activities (ba (more content not included)... Normal [facility] SARS-CoV-2 RNA Resp Ql NUHA+p ngoc 01-14-2023 SARS-CoV-2 (COVID-19) RNA NUHA+probe Ql (Resp) COVID 19 RESULT: Detected The method used is RT-PCR or an equivalent NAAT method. Reference Range (the expected result in uninfected individuals): Not detected Normal [facility] Comment on above: Performed By: #### 3 6902-5, TRVAMP #### [facility] CLIA [id number] [address] [place] [address] [place] US FEMALE PELVIS TRANSVAGon 08-27-2022 FEMALE PELVIS TRANSVAG * * *Final Report* * * DATE OF EXAM: Aug 27 2022 4:16PM U 1060 - US FEMALE PELVIS TRANSVAG / PROCEDURE REASON: Intrauterine device surveillance * * * * Physician Interpretation * * * * EXAMINATION: TRANSABDOMINAL PELVIC ULTRASOUND CLINICAL HISTORY: Evaluate intrauterine device TECHNIQUE: Sonography of the pelvis was performed by transabdominal technique. Patient declined transvaginal imaging. Images were obtained and stored in a permanent archive and interpreted remotely. MQ: UFP_1 COMPARISON: None RESULT: Uterus size: 3.3 x 4.8 x 7.1 cm -Orientation: Anteverted -Myometrium: Normal sonographic appearance. -Endometrial echo complex: 0.5 cm with intrauterine device appearing in satisfactory position sonographically. -Cervix: normal Right ovary: Not visualized due to obscuring bowel gas. No sonographic evidence of right adnexal mass. Left ovary: 2.1 x 2.4 x 3.0 cm Normal sonographic appearance. Pelvis free fluid: None IMPRESSION: 1. Intrauterine device appears in satisfactory position sonographically. 2. Right ovary not visualized and therefore not evaluated. Gas Appliance Servicer Helper: CHERI Transcribe Date/Time: Aug 31 2022 6:32A Dictated by : RAE VERA MD This examination was interpreted and the report reviewed and electronically signed by: RAE VERA MD on Aug 31 2022 6:35AM EST [id number] Normal [facility] C. trachomatis+N. gonorrhoea e DNA NUHA+probe Ql (Unsp spec)on 08-19-2022 C. trachomatis DNA NUHA+probe Ql (Unsp spec) Negative Negative for Chlamydia trachomatis by amplificaton [facility] N. gonorrhoeae DNA NUHA+probe Ql (Unsp spec) Negative Negative for Neisseria gonorrhoeae by amplification [facility] T VAGINALIS AMPLIFICATIONon 08-19-2022 T. vaginalis DNA NUHA+probe Ql (Unsp spec) Negative Negative for Trichomonas vaginalis by amplification [facility] C. trachomatis+N. gonorrhoea e DNA NUHA+probe Ql (Unsp spec)on 08-18-2022 C. trachomatis DNA NUHA+probe Ql (Unsp spec) Negative Normal Negative for Chlamydia trachomatis by amplificaton [facility] Comment on above: Order Comment: Speci men Type: SWAB Ordering Facility: [facility] Address: [address] [place] [address] Performed By: #### 3 6902-5, TRVAMP #### [facility] CLIA [id number] [address] [place] [address] N. gonorrhoeae DNA NUHA+probe Ql (Unsp spec) Negative Normal Negative for Neisseria gonorrhoeae by amplification [facility] Comment on above: Order Comment: Speci men Type: SWAB Ordering Facility: [facility] Address: [address] [place] [address] Performed By: #### 3 6902-5, TRVAMP #### [facility] CLIA [id number] [address] [place] [address] OF [facility] CNOVon 08-18-2022 CNOV Office Visit (OBGYWM ) -------- LUISITO SOLANO ([id number]) 1995 F Date Time Provider Department 08/18/22 3:40 PM LAURA ALVARADO During your visit today, we recorded the following information about you: Blood pressure Weight 120/82 75.8 kg Laura Alvarado MD 08/18/2022 5:01 PM Signed Luisito is a 26 year old who presents for an annual gynecologic exam. Menses: occ light spotting - Mirena IUD. Contraception: IUD HPV vaccine: unsure Last Pap: today History of abnormal pap: No Last mammogram: never OB History No obstetric history on file. 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 LMP: LMP Unknown, IUD Age at Menarche: Age at First : Age at Menopause: 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 Comments: Sexual Activity: Yes; Male Contraception: [...] external genitalia normal, normal Bartholin's glands, urethra, Pella's glands, no vulvar lesions, no cervical lesions, [...] or sooner as needed Laura Alvarado MD Allergies As of Date: 08/18/2022 (No Known Allergies) Date Reviewed: 08/18/2022 Reviewed by: Laura Alvarado MD - Fully Assessed Reason for Visit: Yearly Exam [187] Primary Visit Diagnosis:Encounter for screening for malignant neoplasm of cervix [Z12.4] Other Visit Diagnoses:Encounter for routine checking of intrauterine contraceptive device (IUD) [Z30.431] Intrauterine device surveillance [Z30.431] Screen for STD (sexually transmitted disease) [Z11.3] Order(s):HCG QUAL UR B/O [[id number]] Order #: [id number] PAP TEST [LJC8868] Order #: [id number]. #:[id number] GC/CHLAMYDIA DNA DET [SQGCCAMP] Order #: [id number]. #:[id number] VAGINALIS AMPLIFICATION [SQTRVAMP] Order #: [id number]. #:[id number] FEMALE PELVIS TRANSVAG [[id number]] Order #: [id number] FUTURE Prescriptions as of 08/18/2022 - levonorgestrel (MIRENA) 20 mcg/24 hours (5 yrs) 52 mg IUD 1 Each by INTRAUTERINE route continuous. - RISPERIDONE 0.5 MG TAB take one tablet po daily at bedtime. - polyethylene glycol 3350(MIRALAX 100 % ORAL POWDER) 1/2 to 1 capful daily as needed - risperidone 0.25 mg ORAL Tab takes one tablet twice daily po - CONCERTA 36 MG TAB Take one(1) tablet daily. Problem List As Of Date 08/18/2022 Noted Resolved Sprain of anterior talofibular ligament of righ*05/24/2018 Encounter Status:Closed by LAURA ALVARADO on 08/18/22 Normal [facility] HCG QUAL UR B/Oon 08-18-2022 status Negative neg - pos [facility] Quality Check Yes [facility] PAP TESTon 08-18-2022 CASE REPORT Normal [facility] Comment on above: Order Comment: Speci men Type: FLUID SPECIMEN Ordering Facility: [facility] Address: [address] [place] [address] Result Comment: Gyne cologic Cytology Report Case: [id number] Authorizing Provider: Laura Alvarado MD Collected: 08/18/2022 04:41 PM Ordering Location: OB/Gynecology Received: 08/18/2022 04:53 PM First Screen: Luly Shannon, CT, ASCP Specimen: Pap Test, ThinPrep, Cervix Performed By: #### L [id number] #### [facility] CLIA [id number] [address] [place] [address] OF [facility] CLIA [id number] [address] [place] [address] [place] CLINICAL HISTORY, CYTOLOGY, 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 Intra Uterine Device Normal [facility] Comment on above: Order Comment: Speci men Type: FLUID SPECIMEN Ordering Facility: [facility] Address: [address] [place] [address] Performed By: #### L [id number] #### [facility] CLIA [id number] [address] [place] [address] OF [facility] CLIA [id number] [address] [place] [address] [place] CYTOLOGY INTERPRETATION PAP Normal [facility] Comment on above: Order Comment: Speci men Type: FLUID SPECIMEN Ordering Facility: [facility] Address: [address] [place] [address] Result Comment: Nega tive for Intraepithelial lesion or malignancy. Performed By: #### L [id number] #### [facility] CLIA [id number] [address] [place] [address] [place] [facility] CLIA [id number] [address] [place] FINAL DIAGNOSIS A - Cervix Normal [facility] Comment on above: Order Comment: Speci men Type: FLUID SPECIMEN Ordering Facility: [facility] Address: [address] [place] [address] Result Comment: Sati sfactory for interpretation Negative for Intraepithelial lesion or malignancy. Predominance of coccobacilli consistent with shift in vaginal paige Performed By: #### L [id number] #### [facility] CLIA [id number] [address] [place] [address] [place] [facility] CLIA [id number] [address] [place] [address] [place] FINAL PERFORMING LAB Normal [facility] Comment on above: Order Comment: Speci men Type: FLUID SPECIMEN Ordering Facility: [facility] Address: [address] [place] [address] Result Comment: Tech nical component, freight representative screening performed at [facility], [address] [place] [address] CLIA# [id number] Diagnostic interpretation performed at [facility], [address] [place] [address] CLIA# [id number] Senior Software Developer: Rosie Shore M.D. Performed By: #### L [id number] #### [facility] CLIA [id number] [address] [place] [address] [place] [facility] CLIA [id number] [address] [place] [address] [place] HPV REFLEX HPV if ASCUS Normal [facility] Comment on above: Order Comment: Speci men Type: FLUID SPECIMEN Ordering Facility: [facility] Address: [address] [place], [place] [address] Performed By: #### L [id number] #### [facility] CLIA [id number] [address] [place] [address] [place] [facility] CLIA [id number] [address] [place] [address] [place] LMP 07/19/2022 Normal [facility] Comment on above: Order Comment: Speci men Type: FLUID SPECIMEN Ordering Facility: [facility] Address: [address] [place] [address] Performed By: #### L [id number] #### [facility] CLIA [id number] [place] [address] [place] [facility] CLIA [id number] [address] [place] [address] [place] PAP DISCLAIMER COMMENT The Pap Smear is a screening test for cervical cancer. False negative results occur with all screening tests, emphasizing the need for rescreening at recommended intervals, and clinical correlation. Normal [facility] Comment on above: Order Comment: Speci men Type: FLUID SPECIMEN Ordering Facility: [facility] Address: [address] [place], [place] [address] Performed By: #### L [id number] #### [facility] CLIA [id number] [address] [place] [address] [place] [facility] CLIA [id number] [address] [place] [address] [place] PAP [employer] COMMENT This specimen has be en analyzed by the ThinPrep Imaging System, an automated imaging and review system, which assists the laboratory in evaluating cells on ThinPrep Pap tests. Following automated imaging, selected mcknight from every slide are reviewed by a freight representative. Normal [facility] Comment on above: Order Comment: Speci men Type: FLUID SPECIMEN Ordering Facility: [facility] Address: [address] [place], [place] [address] Performed By: #### L [id number] #### [facility] CLIA [id number] [place] [address] [place] [facility] CLIA [id number] [address] [place] [address] [place] T VAGINALIS AMPLIFICATIONon 05-02-2023 T. vaginalis DNA NUHA+probe Ql (Unsp spec) Negative Normal Negative for Trichomonas vaginalis by amplification [facility] Comment on above: Order Comment: Speci men Type: SWAB Ordering Facility: [facility] Address: [address] [place] [address] Performed By: #### 3 6902-5, TRVAMP #### [facility] CLIA [id number] [address] [facility] [id number] Progress Noteon 07-05-2017 Sewing Techniques Demonstrator Authentication Interface Message Text Patient ID: Luisito Solano is a 21 y.o. female. Her chief complaint(s)include: ADHD Follow-up.Assessment:1. Attention deficit hyperactivity disorder (ADHD), combined type2. Problems with learning3. DysmenorrheaPlan:Luisito was seen today for adhd follow-up.Diagnoses and all orders for this visit:Attention deficit hyperactivity disorder (ADHD), combined typeProblems with learningDysmenorrheaNo Follow-up on file.Patient doing better with increase in risperdal. Patient eating fine. Patienttransferring care to adult doctor.Subjective:HPI Comments: Board of DD helping her find a job.Helping mom around houseADHD Follow-upThe information was obtained from the parent(s). Current ADHD medication(s)include Concerta and Ritalin. Dosage schedule: daily. Compliance withmedication: takes medication daily.The other interventions include medications. Side effects have not includeddecreased appetite, stomachache, headaches and delayed sleep onset. The patientis in work force. Her school performance includes: meeting expectations.The patient has shown improvement with being attentive to details, finishingschoolwork, being easily distracted and being forgetful. The patient has shownimprovement in fidgeting, leaving their seat, running about/climbingexcessivel y, playing quietly, being on the go and talking excessively.She is accompanied by her mother.Primary Care Review of SystemsObjective:Physica l ExamConstitutional: She appears well. She is active. No distress.HENT:Head: Atraumatic.Right Ear: Tympanic membrane and external ear normal.Left Ear: Tympanic membrane and external ear normal.Nose: Nose normal.Mouth/Throat: Mucous membranes are moist. Dentition is normal.Eyes: Conjunctivae and EOM are normal. Pupils are equal, round, and reactive tolight.Neck: Neck supple. No neck adenopathy.Cardiovascula r: Normal rate, regular rhythm, S1 normal and S2 normal. Pulsesare palpable.Pulmonary/Chest : Effort normal and breath sounds normal.Abdominal: Soft. Bowel sounds are normal. She exhibits no distension and nomass. There is no tenderness.Musculoskelet al: She exhibits no deformity.Neurological: She is alert. She has normal strength. She exhibits normal muscletone.Skin: No rash noted. No cyanosis. No pallor. Skin is warm.Vitals reviewed: Blood pressure 118/64, pulse 84, height 164.9 cm, weight 57.1kg. Normal [facility] Progress Noteon 05-12-2017 Sewing Techniques Demonstrator Authentication Interface Message Text Patient ID: Luisito Solano is a 21 y.o. female. Her chief complaint(s)include: Pharyngitis and Cough.Assessment:1. Sore throatPlan:Luisito was seen today for pharyngitis and cough.Diagnoses and all orders for this visit:Sore throat- POCT rapid strep A antigenRapid strep neg. Recommended drinking plenty of clear fluids, powerade,popsicles, jello, and honey. Follow up if sx not improving/worsening.Subj ective:She is accompanied by her mother.PharyngitisThe onset has been acute. (2-3 weeks). The course is unchanging.The patient's symptoms have included decreased fluid intake, sneezing and cough.The patient's symptoms have included no fever (felt warm a few nights ago).([place] dizzy last night).The patient has been exposed to no sick contacts.CoughPrimary Care Review of SystemsObjective:Physica l ExamConstitutional: No distress.HENT:Head: Atraumatic.Right Ear: Tympanic membrane normal.Left Ear: Tympanic membrane normal.Nose: No nasal discharge.Mouth/Throat: Throat is not red. Mucous membranes are moist.Eyes: Conjunctivae are normal. Pupils are equal, round, and reactive to light.Right eyelid exhibits no discharge. Left eyelid exhibits no discharge.Neck: Neck adenopathy (1 small mid anterior cervical lymph node. non-tender andeasily moveable) present.Cardiovascular: Normal rate and regular rhythm.No murmur heard.Pulmonary/Chest: Breath sounds normal. There is normal air entry. No stridor. Norespiratory distress. Air movement is not decreased. She has no wheezes. She hasno rhonchi. She has no rales. Exhibits no retraction.Neurological: She is alert. Normal [facility] Progress Noteon 04-28-2017 [employer] Demonstrator Authentication Interface Message Text Patient ID: Luisito Solano is a 21 y.o. female. Her chief complaint(s)include: 21 YEAR WELL CHILD.Assessment:1. Routine general medical examination at a health care facility2. Problems with learning3. Attention deficit hyperactivity disorder (ADHD), combined type4. Disturbance of conductPlan:Luisito was seen today for 21 year well child.Diagnoses and all orders for this visit:Routine general medical examination at a health care facility- Behavioral/Emotional Assessment w Score - PHQ-9Problems with learningAttention deficit hyperactivity disorder (ADHD), combined typeDisturbance of conduct- risperiDONE (RISPERDAL) 2 MG tablet; Take 1 Tab (2 mg) by mouth dailyReturn in about 1 year (around 04/28/2018) for well check.Will fill out forms for ongoing guardianship. Discussed importance of getting ajob, staying on control. Weight down slightly. Not taking eveningrisperdal so will change to 2 mg in AM.Subjective:HPI Comments: Family counselor soon.Patient has been losing weight. Patient eating.She is accompanied by her mother.21 YEAR WELL CHILDHome:Luisito eats meals with family and has an adult to turn to for help. Luisito isnot permitted and able to make independent decisions.Education:She Is in the work force and is doing poorly. (Patient not working at thistime. 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 Her sexual partners are males. She identifies asheterosexual. Typically, she uses oral contraceptives as her currentcontraceptive method. She has previously been : noShe has not had an STD.Suicidality:She has no depression, has no anxiety, has no suicidal ideation and has nohomicidal ideation.MenstruationLas t Menstrual Period: 1 week ago.Menstruation: regular periods and minimal crampingOutputUrine and Stool Pattern:Urine and Stool Pattern: Normal stool pattern, normal urine pattern.SleepHours of sleep at a time: 8Teen Anticipatory GuidanceThe following anticipatory guidance was reviewed during the visit:Nutrition: limit junk food/fast food and soft drinks.Safety: home safety.Social: avoid or limit screen time.Health: age appropriate dental care, avoid situations where drugs and alcoholare present, learn how to say 'no' to sex, contraception/practice safe sex/ usecondoms and learn about self and strengths.ScreeningsPrev ious Vaccine Reactions: No.Hearing Vision Concerns:The caregiver has no concerns about the patient's hearing.The caregiver has no concerns about the patient's vision.Primary Care Review of SystemsObjective:Physica l ExamConstitutional: She appears well. She is active. No distress.HENT:Head: Atraumatic.Right Ear: Tympanic membrane and external ear normal.Left Ear: Tympanic membrane and external ear normal.Nose: Nose normal.Mouth/Throat: Mucous membranes are moist. Dentition is normal. Oropharynx isclear.Eyes: Conjunctivae and EOM are normal. No strabismus. Pupils are equal, round,and reactive to light.Neck: Normal range of motion. Neck supple. Thyroid normal. No neck adenopathy.Cardiovascula r: Normal rate, regular rhythm, S1 normal and S2 normal. Pulsesare palpable.No murmur heard.Pulmonary/Chest: Breath sounds normal. No respiratory distress. Exhibits nodeformity.Abdominal: Soft. Bowel sounds are normal. She exhibits no distension and nomass. There is no hepatosplenomegaly. There is no tenderness.Musculoskelet al: Normal range of motion. Back: She exhibits no scoliosis.Neurological: She is alert. She has normal strength. She exhibits normal muscletone. Gait normal.Skin: No rash noted. No pallor. Skin is warm.Psychiatric: She has a normal mood and affect. Her speech is delayed. She isslowed.Vitals reviewed: Blood pressure 119/75, pulse 101, height 164.7 cm, weight 55.3kg. Normal [facility] Progress Noteon 03-09-2017 [employer] Authentication Interface Message Text Patient ID: Luisito Solano is a 21 y.o. female. Her chief complaint(s)include: ADHD Follow-up.Assessment:1. Attention deficit hyperactivity disorder (ADHD), combined type2. Problems with learning3. ADHD, predominantly inattentive typePlan:Luisito was seen today for adhd follow-up.Diagnoses and all orders for this visit:Attention deficit hyperactivity disorder (ADHD), combined typeProblems with learningADHD, predominantly inattentive type- methylphenidate (CONCERTA) 54 MG CR tablet; Take 1 Tab (54 mg) by mouthevery morning- methylphenidate (RITALIN) 10 MG tablet; Take 1 Tab (10 mg) by mouth everyafternoonNo Follow-up on file.Continue medications. Discussed importance of patient doing some work aroundthe houseSubjective:HPI Comments: [employer] on Wednesday and Wednesdayshe is accompanied by her mother.ADHD Follow-upThe information was obtained from the parent(s). Current ADHD medication(s)include Concerta and Ritalin. (Risperdal). Dosage schedule: daily. Compliancewith medication: takes medication daily.The other interventions include medications. Side effects have not includeddecreased appetite, stomachache, headaches and delayed sleep onset. The patientis in work force. Her school performance includes: doing well.The patient has shown improvement with sustaining attention in tasks and beingforgetful. The patient has shown improvement in fidgeting, leaving their seat,running about/climbing excessively, playing quietly and being on the go .The expectations for assement include improvements in social relationships,improved academic performance and improved self-esteem.Primary Care Review of SystemsObjective:Physica l ExamConstitutional: She appears well. She is active. No distress.HENT:Head: Atraumatic.Right Ear: Tympanic membrane and external ear normal.Left Ear: Tympanic membrane and external ear normal.Nose: Nose normal.Mouth/Throat: Mucous membranes are moist. Dentition is normal.Eyes: Conjunctivae and EOM are normal. Pupils are equal, round, and reactive tolight.Neck: Neck supple. No neck adenopathy.Cardiovascula r: Normal rate, regular rhythm, S1 normal and S2 normal. Pulsesare palpable.Pulmonary/Chest : Effort normal and breath sounds normal.Abdominal: Soft. Bowel sounds are normal. She exhibits no distension and nomass. There is no tenderness.Musculoskelet al: She exhibits no deformity.Neurological: She is alert. She has normal strength. She exhibits normal muscletone.Skin: No rash noted. No cyanosis. No pallor. Skin is warm.Vitals reviewed: Blood pressure 120/66, pulse 89, height 164.1 cm, weight 56.9kg. Normal [facility] Progress Noteon 02-08-2017 [employer]onstrator Authentication Interface Message Text Patient ID: Luisito Solano is a 21 y.o. female. Her chief complaint(s)include: ADHD Follow-up.Assessment:1. ADHD, predominantly inattentive typePlan:Luisito was seen today for adhd follow-up.Diagnoses and all orders for this visit:ADHD, predominantly inattentive type- methylphenidate (RITALIN) 10 MG tablet; Take 1 Tab (10 mg) by mouth everyafternoon- methylphenidate (CONCERTA) 54 MG CR tablet; Take 1 Tab (54 mg) by mouthevery morningNo Follow-up on file.Continue medicationsSubjective:Sh alma is unaccompanied. ADHD Follow-upThe information was obtained from the parent(s). Current ADHD medication(s)include Concerta and Ritalin. Dosage schedule: daily. Compliance withmedication: takes medication daily.The other interventions include individual education plan (IEP) and medications.Side effects have not included stomachache and headaches. The patient is inwork force. Her school performance includes: doing well.The patient has shown improvement with being attentive to details, finishingschoolwork, being easily distracted and being forgetful. The patient has shownimprovement in fidgeting, leaving their seat, running about/climbing excessivelyand being on the go .The expectations for assement include improvements in social relationships andimproved academic performance.Primary Care Review of SystemsObjective:Physica l ExamConstitutional: She appears well. She is active. No distress.HENT:Head: Atraumatic.Right Ear: Tympanic membrane and external ear normal.Left Ear: Tympanic membrane and external ear normal.Nose: Nose normal.Mouth/Throat: Mucous membranes are moist. Dentition is normal.Eyes: Conjunctivae and EOM are normal. Pupils are equal, round, and reactive tolight.Neck: Neck supple. No neck adenopathy.Cardiovascula r: Normal rate, regular rhythm, S1 normal and S2 normal. Pulsesare palpable.Pulmonary/Chest : Effort normal and breath sounds normal.Abdominal: Soft. Bowel sounds are normal. She exhibits no distension and nomass. There is no tenderness.Musculoskelet al: She exhibits no deformity.Neurological: She is alert. She has normal strength. She exhibits normal muscletone.Skin: No rash noted. No cyanosis. No pallor. Skin is warm.Vitals reviewed: Blood pressure 111/60, pulse 87, height 164 cm, weight 57.4 kg,last menstrual period 01/17/2017. Normal [facility] Vital Signs Date Time Vital Sign Value Performing Clinician Faci megy 03-29-2023 11:22-0500 Body temperature 98.49 [degF] Oleksandr Pastrana MD Work Phone: [facility] 03-29-2023 11:22-0500 Body weight 76.93 kg Oleksandr Pastrana MD Work Phone: [facility] 03-29-2023 11:22-0500 Diastolic blood pressure 72 mm[Hg] Oleksandr Pastrana MD Work Phone: [facility] 03-29-2023 11:22-0500 Heart rate 86 /min Oleksandr Pastrana MD Work Phone: [facility] 03-29-2023 11:22-0500 Respiratory rate 18 /min Oleksandr Pastrana MD Work Phone: [facility] 03-29-2023 11:22-0500 SaO2% (BldA) [Mass fraction] 98 % Oleksandr Pastrana MD Work Phone: [facility] 03-29-2023 11:22-0500 Systolic blood pressure 112 mm[Hg] Oleksandr Pastrana MD Work Phone: [facility] 08-18-2022 16:10-0400 Body weight 75.84 kg Laura Alvarado MD Work Phone: [facility] 08-18-2022 16:10-0400 Diastolic blood pressure 82 mm[Hg] Laura Alvarado MD Work Phone: [facility] 08-18-2022 16:10-0400 Systolic blood pressure 120 mm[Hg] Laura Alvarado MD Work Phone: [facility] 11-17-2021 10:49-0400 Body temperature 97.59 [degF] Zakiya Yaz RN BSN.UNIT AIDE Work Phone: [facility] 11-17-2021 10:49-0400 Body weight 59.88 kg Zakiya Yaz RN BSN.UNIT AIDE Work Phone: [facility] 11-17-2021 10:49-0400 Diastolic blood pressure 70 mm[Hg] Zakiya Yaz RN BSN.UNIT AIDE Work Phone: [facility] 11-17-2021 10:49-0400 Heart rate 66 /min Zakiya Yaz RN BSN.UNIT AIDE Work Phone: [facility] 11-17-2021 10:49-0400 Respiratory rate 16 /min Zakiya Yaz RN BSN.UNIT AIDE Work Phone: [facility] 11-17-2021 10:49-0400 SaO2% (BldA) [Mass fraction] 99 % Zakiya Yaz RN BSN.UNIT AIDE Work Phone: [facility] 11-17-2021 10:49-0400 Systolic blood pressure 122 mm[Hg] Zakiya Yaz RN BSN.UNIT AIDE Work Phone: [facility] Encounters Encounter Date Encounter Type Care Provider Facility Start: 03-30-2023 Telephone encounter Peace Pyle RN BSN.UNIT AIDE Work Phone: [facility] Comment on above: Results Start: 03-29-2023 End: 03-29-2023 ambulatory [facility] Facility:[facility] Start: 03-29-2023 End: 03-29-2023 Patient encounter procedure Oleksandr Pastrana MD Work Phone: [facility] Comment on above: URI, acute (Primary Dx) Start: 01-15-2023 Telephone encounter Faheem davidson PA-C Work Phone: [facility] Comment on above: Results Start: 01-14-2023 End: 01-14-2023 ambulatory ROSIE CAON Facility:[facility] Start: 08-27-2022 End: 08-27-2022 ambulatory LAURA ALVARADO Facility:[facility] Start: 08-27-2022 End: 08-27-2022 Subsequent hospital visit by physician [facility] Work Phone: Radiology Comment on above: Intrauterine device surveillance [Z30.431] Start: 08-18-2022 End: 08-19-2022 ambulatory LAURA ALVARADO Facility:[facility] Start: 08-18-2022 End: 08-18-2022 Patient encounter procedure Laura Alvarado MD Work Phone: OB/Gynecology Comment on above: Encounter for screen ing for malignant neoplasm of cervix (Primary Dx); Encounter for routine checking of intrauterine contraceptive device (IUD); Intrauterine device surveillance; Screen for STD (sexually transmitted disease) Start: 11-18-2021 Telephone encounter Diego benton APRN.UNIT AIDE Work Phone: [facility] Comment on above: Results Start: 11-17-2021 End: 11-17-2021 Patient encounter procedure Zakiya Mukherjee APRN.UNIT AIDE [facility] Comment on above: Suspected COVID-19 v irus infection (Primary Dx) Start: 07-05-2017 End: 07-05-2017 Ambulatory [facility] Start: 05-12-2017 End: 05-12-2017 Ambulatory ROBERT Ortez [facility] Start: 04-28-2017 End: 04-28-2017 Ambulatory [facility] Start: 03-09-2017 End: 03-09-2017 Ambulatory [facility] Start: 02-08-2017 End: 02-08-2017 Ambulatory FLORA Sanchez [facility] Procedures Date Procedure Procedure Detail Performing Clinician Start: 08-27-2022 Us transvaginal Laura Alvarado MD Work Phone: Start: 08-18-2022 Iadna chlamydia trachomatis amplified probe tq Laura Alvarado MD Work Phone: Start: 08-18-2022 Urine test visual color cmprsn meths Laura Alvarado MD Work Phone: Plan of Treatment Date Care Activity Detail Author Start: 08-18-2025 Pap Testing Pap Testing [facility] Start: 08-18-2025 Screening for malign ant neoplasm of cervix Pap Testing [facility] Start: 12-18-2022 Covid-19 Vaccine () Covid-19 Vaccine () [facility] Start: 12-18-2022 Influenza vaccination [facility] Start: 04-19-2022 DEPRESSION ASSESSMENT DEPRESSION ASS ESSMENT [facility] Start: 12-18-2021 Influenza vaccination INFLUENZA (#1) [facility] Start: 11-17-2021 End: 12-01-2021 SARS-CoV-2 (COVID-19) RNA [Presence] in Respiratory specimen by NUHA with probe detection [facility] Work Phone: Comment on above: Expected: 11/17/2021 , Expires: 12/01/2021 Start: 03-24-2021 COVID-19 VACCINE (4 - Booster for Pfizer series) COVID-19 VACCINE (4 - Booster for Pfizer series) [facility] Start: 03-24-2021 Covid-19 Vaccine (4 - Pfizer series) Covid-19 Vaccine (4 - Pfizer series) [facility] Start: 06-01-2018 Urine microalbumin profile DTaP,Tdap,Td Vaccine (7 - Td or Tdap) [facility] Start: 2017 PAP TESTING PAP TESTING [facility] Start: 2014 HEPATITIS C SCREENING HEPATITIS C [facility] Start: 2014 Hepatitis C screening Hepatitis C [facility] Start: 2014 HIV SCREENING HIV SCREENING [facility] Start: 2014 HIV screening HIV Screening [facility] Start: 2010 PEDS TO ADULT TRANSITION ANNUAL ASSESSMENT PEDS TO ADULT TRANSITION ANNUAL ASSESSMENT [facility] Start: 01-14-2009 HPV Vaccine (3 - 2-d ose series) HPV Vaccine (3 - 2-dose series) [facility] Start: 2008 Adult depression screening assessment DEPRESSION SCREENING [facility] Start: 2008 PEDS TO ADULT TRANSITION INITIAL DISCUSSION PEDS TO ADULT TRANSITION INITIAL DISCUSSION [facility] Start: 11-02-2007 HPV VACCINE (1 - 2-d ose series) HPV VACCINE (1 - 2-dose series) [facility] Start: 11-02-2007 Urine microalbumin profile [facility] Start: 2005 HPV Vaccine (1 - 2-d ose series) HPV Vaccine (1 - 2-dose series) [facility] COVID & INFLUENZA A/ B & RSV NAAT, ROUTINE COVID & INFLUENZA A/B & RSV NAAT, ROUTINE Microbiology Routine URI, acute 03/29/2023 11:59 AM EST [facility] Work Phone: PAP TEST PAP TEST Lab Tracey wheat Encounter for screening for malignant neoplasm of cervix 08/18/2022 4:41 PM EDT [facility] Work Phone: End: 09-17-2023 Us transvaginal US FEMALE PELVIS TRANSVAG Radiology Routine Intrauterine device surveillance 1 Occurrences starting 08/18/2022 until 09/17/2023 [facility] Work Phone: Comment on above: 1 [facility]ur[facility]i ng [facility]18[facility] Immunization Date Immunization Notes Care Provider Fa sania 02-04-1998 diphtheria, tetanus toxoids and acellular pertussis vaccine Zakiya Mukherjee APRN.UNIT AIDE Work Phone: [facility] Work Phone: 02-04-1998 haemophilus influenz ae type b vaccine, HbOC conjugate Zakiya Mukherjee APRN.UNIT AIDE Work Phone: [facility] Work Phone: 02-04-1998 trivalent poliovirus vaccine, live, oral Zakiya Mukherjee APRN.UNIT AIDE Work Phone: [facility] Work Phone: 11-06-1997 measles, mumps and rubella virus vaccine Zakiya Yaz RN BSN.UNIT AIDE Work Phone: [facility] Work Phone: 08-03-1997 hepatitis B vaccine, pediatric or pediatric/adolescent dosage Zakiya Yaz RN BSN.[facility] Work Phone: [facility] Work Phone: 05-23-1997 diphtheria, tetanus toxoids and acellular pertussis vaccine Zakiya Yaz RN BSN.[facility] Work Phone: [facility] Work Phone: 05-23-1997 haemophilus influenz ae type b vaccine, HbOC conjugate Zakiya Yaz RN BSN.[facility] Work Phone: [facility] Work Phone: 03-07-1997 diphtheria, tetanus toxoids and acellular pertussis vaccine Zakiya Yaz RN BSN.[facility] Work Phone: [facility] Work Phone: 03-07-1997 haemophilus influenz ae type b vaccine, HbOC conjugate Zakiya Yaz RN BSN.[facility] Work Phone: [facility] Work Phone: 03-07-1997 trivalent poliovirus vaccine, live, oral Zakiya Yaz RN BSN.[facility] Work Phone: [facility] Work Phone: 01-01-1997 diphtheria, tetanus toxoids and acellular pertussis vaccine Zakiya Yaz RN BSN.[facility] Work Phone: [facility] Work Phone: 01-01-1997 haemophilus influenz ae type b vaccine, HbOC conjugate Zakiya Yaz RN BSN.[facility] Work Phone: [facility] Work Phone: 01-01-1997 trivalent poliovirus vaccine, live, oral Zakiya Yaz RN BSN.UNIT AIDE Work Phone: [facility] Work Phone: 1996 hepatitis B vaccine, pediatric or pediatric/adolescent dosage Zakiya Crk RN BSN.UNIT AIDE Work Phone: [facility] Work Phone: 1996 hepatitis B vaccine, pediatric or pediatric/adolescent dosage Zakiyamoriah Crk RN BSN.UNIT AIDE Work Phone: [facility] Work Phone: Payers Date Payer Category Payer Unknown [employer] HMO [id number] 2020-Present [phone] [id number] HMO [id number] 2020 Unknown [employer]M [employer] S [employer] BL[employer] SHIELD AN[employer]M MED[employer] HMO [id number] 2020-Present [id number] [place], [place] [id number] O [id number] 2020 Unknown [id number] 2018 Medicaid MEDICAID [facility] MEDICAID [id number] 2018-Present [phone] [address] [place] [id number] Medicaid [id number] 2018 Medicaid MEDICAID [facility] MEDICAID [id number] 2018-Present [phone] [address] [place] [address] Medicaid [id number] 2018 Medicaid [id number] Medicare [id number] Unknown [id number] Social History Date Type Detail Facility Start: 08-18-2022 Tobacco smoking stat us NHIS Never smoked tobacco [facility] Work Phone: Start: 11-17-2021 End: 03-29-2023 Alcohol intake Current non-drinker of alcohol (finding) [facility] Start: 1995 Sex Assigned At Not on file C [facility] Start: 11-07-2021 End: 11-17-2021 Exposure to SARS-CoV-2 (event) Not sure [facility] Work Phone: Start: 08-18-2022 Tobacco use and exposure Smokeless tobacco non-user [facility] Start: 08-18-2022 End: 01-14-2023 History of Social function [facility] Start: 08-18-2022 End: 01-14-2023 Tobacco use panel [facility] National Score (1-100), lower number is lower risk 92 [facility] Clinical Notes 11-17-2021 to 03-30-2023 Telephone Encounter - Moy Hackett LPN - 03/30/2023 8:48 AM ESTTelephone Encounter - Emily Reyes - 03/30/2023 7:47 AM ESTTelephone Encounter - Emily Reyes - 03/30/2023 7:47 AM EST Note Date & Type Note Facility 03-30-2023 Miscellaneous Notes Patient returned call and went over results, notes from express care provider with understanding. Left message for patient to return call. ----- Message from Peace Quick APRN.UNIT AIDE sent at 03/30/2023 7:35 AM EST ----- Please advise patient the test for RSV was positive. RSV is a respiratory virus, supportive care at home is indicated. If Luisito develops worsening symptoms or experiences any respiratory difficulty, she should be seen in ER. COVID and flu were negative. Peace Quick APRN.UNIT AIDE documented in this encounter [facility] 03-29-2023 Note HNO ID: [id number] Author: Oleksandr Pastrana MD Service: ? Author [...] COVID illness in December. Works in a long term, reports her boss wants her tested for [...] AND RSV NAAT, ROUTINE Oleksandr Pastrana MD [facility] 03-29-2023 History of Presen t illness Narrative Patient presents with: Sore Throat: Congestion x3 days HPI: Feeling sick for 3 days. Positive symptoms: some Cough and wheezing, Sore throat, Nasal Congestion, Rhinorrhea, Post nasal drainage, malaise, fatigue Negative symptoms: Fever, Chills, Body Aches, Headache, Nausea, Vomiting, Diarrhea, OTC: none. Had COVID illness in December. Works in a long term, reports her boss wants her tested for [...] Oleksandr Pastrana MD documented in this encounter [facility] 01-15-2023 Miscellaneous Notes Patient notified of results, verbalized understanding of instructions given. Gavino Mariano MA Please call and let patient know she was positive for COVID-19. Recommend quarantine for 5 days from first day of symptoms and a mask for another 5 days after that. If not improving follow-up with PCP. documented in this encounter [facility] 01-14-2023 Note HNO ID: [id number] Author: Jennifer Ramirez APRN.HARISH Service: ? Author Type: Nurse Practitioner Type: [...] in her workplace. Does work at a long term. Denies any fever body aches chills productive [...] ROUTINE Diagnosis suspected COVID-19. PCR test obtained. CDC return to work work guidelines discussed. Work [...] of care. This note was generated using Guidesly software. It may contain errors in wording, punctuation, or spelling. Jennifer Ramirez APRN.[facility] 08-27-2022 Note HNO ID: [id number] Author: RT Rosina(R) Service: Radiology Author Type: Technologist Type: Progress Notes Filed: 08/27/2022 4:26 PM Note Text: Radiology Service Progress Note PATIENT NAME: Luisito Solano DATE OF SERVICE: August 27, 2022 TIME: [...] [address] August 27, 2022 4:26 PM [facility] 08-27-2022 History of Presen t illness Narrative Radiology Service Progress Note PATIENT NAME: Luisito Solano DATE OF SERVICE: August 27, 2022 TIME: [...] 2022 4:26 PM documented in this encounter [facility] 08-18-2022 Note HNO ID: [id number] Author: Laura Alvarado MD Service: ? Author Type: Physician Type: Progress Notes Filed: 08/18/2022 5:01 PM Note Text: Luisito is a 26 year old who presents for an annual gynecologic exam. Menses: occ light spotting - Mirena IUD. Contraception: IUD HPV vaccine: unsure Last Pap: today History of abnormal pap: No Last mammogram: never OB History No obstetric history on file. 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 Menses: occ light spotting - Mirena IUD. Contraception: IUD HPV vaccine: unsure Last Pap: today History of abnormal pap: No Last mammogram: never OB History No obstetric history on file. 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 A test is not recommended to return to work/school when meeting the above criteria. documented in this encounter [facility] 11-17-2021 Instructions Zakiya Mukherjee APRN.CNP - 11/17/2021 11:00 AM EDT covid test ordered You will be notified in 24 -48 hours, results available on [employer] Home isolation until covid results are back [...] inability to swallow. documented in this encounter [facility] 11-17-2021 History of Presen t illness Narrative Subjective The history is provided by the patient and a parent. No assistant speech language pathologist was used. HPI Luisito Solano is a 26 year old female who [...] have confirmed and edited as necessary, the [facility] Review of Systems Constitutional: Positive for [...] in 24-48 hours with results, available on [email or web address] CORONAVIRUS Diagnosis and treatment plan were discussed and questions were answered to the patient's satisfaction. Pt acknowledged understanding of concepts and follow up plan. Specific signs and symptoms that would indicate the need for higher level of care were discussed in detail warranting prompt ER evaluation. Zakiya Mukherjee APRN.HARISH documented in this encounter [facility] Evaluation note Diagnosis Suspected COVID-19 virus infection- Primary [facility] Diagnosis Encounter for screening for malignant neoplasm of cervix- Primary Screening for malignant neoplasm of the cervix Encounter for routine checking of intrauterine contraceptive device (IUD) Intrauterine device surveillance Surveillance of previously prescribed intrauterine contraceptive device Screen for STD (sexually transmitted disease) Screening examination for venereal disease [facility] Diagnosis Intrauterine device surveillance Surveillance of previously prescribed intrauterine contraceptive device [facility] Diagnosis URI, acute- Primary Acute upper respiratory infections of unspecified site documented in this encounter [facility] for referral (narrative)* Diagnostic Procedure Only (Routine) - Authorized Specialty Diagnoses / Procedures Referred By Contlizzette t Referred To Contact US IMAGING Diagnoses Intrauterine device surveillance Procedures US FEMALE PELVIS TRANSVAG US TRANSVAGINAL Laura Alvarado MD [address] [place] [address] Us Imaging Referral ID Status Reason Start Date Expiration Date Visits Requested Visits Authorized [id number] Authorized Auto-Generat ed Referral 08/18/2022 09/17/2023 1 1 [facility] for referral (narrative)* Diagnostic Procedure Only (Routine) - Closed Specialty Diagnoses / Procedures Referred By Contac t Referred To Contact US IMAGING Diagnoses Intrauterine device surveillance Procedures US FEMALE PELVIS TRANSVAG US TRANSVAGINAL Laura Alvarado MD [address] [place] [address] [place] [address] Referral ID Status Reason Start Date Expiration Date V isits Requested Visits Authorized [id number] Closed Auto-Generate d Referral 08/18/2022 09/17/2023 1 1 [facility] for visit Narrative* Diagnostic Procedure Only (Routine) - Closed Specialty Diagnoses / Procedures Referred By Raúl agarwal Referred To Contact US IMAGING Diagnoses Intrauterine device surveillance Procedures US FEMALE PELVIS TRANSVAG US TRANSVAGINAL Laura Alvarado MD [address] [place] [address] [place] [address] Referral ID Status Reason Start Date Expiration Date V isits Requested Visits Authorized [id number] Closed Auto-Generate d Referral 08/18/2022 09/17/2023 1 1 [facility] Summary Purpose Family History No Family [...] ized section and content) DATE CREATED AUTHOR 10/08/[address] [facility] DATE CREATED AUTHOR AUTHOR'S ORGANIZ ATION 03/31/2023 [facility] Source Comments (unrecognize d section and content) In the event this informatio n is protected by the Federal Confidentiality of Alcohol and Drug Abuse Patient Records regulations: The Federal rules restrict any use of the information to criminally investigate or prosecute any alcohol or drug abuse patient.[facility] the event this information is protected by the Federal Confidentiality of Alcohol and Drug Abuse Patient Records regulations: The Federal rules restrict any use of the information to criminally investigate or prosecute any alcohol or drug abuse patient.[facility] the event this information is protected by the Federal Confidentiality of Alcohol and Drug Abuse Patient Records regulations: The Federal rules restrict any use of the information to criminally investigate or prosecute any alcohol or drug abuse patient.[facility] the event this information is protected by the Federal Confidentiality of Alcohol and Drug Abuse Patient Records regulations: The Federal rules restrict any use of the information to criminally investigate or prosecute any alcohol or drug abuse patient.[facility] the event this information is protected by the Federal Confidentiality of Alcohol and Drug Abuse Patient Records regulations: The Federal rules restrict any use of the information to criminally investigate or prosecute any alcohol or drug abuse patient.[facility] the event this information is protected by the Federal Confidentiality of Alcohol and Drug Abuse Patient Records regulations: The Federal rules restrict any use of the information to criminally investigate or prosecute any alcohol or drug abuse patient.[facility] the event this information is protected by the Federal Confidentiality of Alcohol and Drug Abuse Patient Records regulations: The Federal rules restrict any use of the information to criminally investigate or prosecute any alcohol or drug abuse patient.[facility] Reason for Visit (unrecogniz ed section and content) Reason Comments Head Congestion headache, cough and bodyaches x 1 week Reason Comments Results Reason Comments Yearly Exam Reason Comments Sore Throat Congestion x3 days Care Teams (unrecognized sec tion and content) Radio 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 Relationship Specialty Start Date End Date Rosie Cano DO [address] [place] [address] PCP - General Family Practice 07/12/17 Radio 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 Operator Relationship Specialty Start Date End Date Rosie Cano DO [address] [place] [address] PCP - General Family Practice 07/12/17 Radio 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 Operator Relationship Specialty Start Date End Date Rosie Cano DO [address] [place] [address] PCP - General Family Medicine 07/12/17 Radio 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 Operator Relationship Specialty Start Date End Date Rosie Cano DO [address] [place] [address] PCP - General Family Medicine 07/12/17 Radio 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 Operator Relationship Specialty Start Date End Date Rosie Cano DO [address] [place] [address] PCP - General Family Medicine 07/12/17 Radio 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 Operator Relationship Specialty Start Date End Date Rosie Cano DO [address] [place] [address] PCP - General Family Medicine 07/12/17 Radio 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 Operator Relationship Specialty Start Date End Date Rosie Cano DO [address] [place] [address] PCP - General Family Medicine 07/12/17 FOR RECORDS PERTAINING TO PATIENTS WHO [...] BE BASED ON THE PRIMARY CLINICAL RECORDS. [employer] [facility]. provides no warranty or guarantee of the accuracy or completeness of information in this document.
== END | disposition home or self-care (01) ==
LOC: BFHLAB 16:00
PROVIDERS: PCP Nurse Practitioner Family; Referring Provider Nurse Practitioner Family; Visit Provider Nurse Practitioner Family
DX: Z00.01 Encounter for general adult medical examination with abnormal findings (principal); Z78.9 Other specified health status; I10 Essential (primary) hypertension
CPT/HCPCS: 36415; 80053; 80061; 85025; 86706

== ENCOUNTER 2024-06-17 16:51 | Emergency (ER) | payer MEDICARE, MEDICAID, SELFPAY ==
[2024-06-17 16:52] VITALS: BP 118/76; PULSE 84; RESP 18; TEMP 35.9; O2SAT 99; BMI 28.2
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
[2024-06-17] MEDS: Ibuprofen 600 MG Tablet PO (17:36)
[2024-06-17 17:45] VITALS: BP 115/80; PULSE 82; RESP 16; TEMP 36.6; O2SAT 100
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
== END 2024-06-17 18:22 | disposition home or self-care (01) ==
PROVIDERS: Emergency Provider Emergency Medicine; PCP Nurse Practitioner Family; Visit Provider Emergency Medicine
DX: S09.90XA Unspecified injury of head, initial encounter (principal); S39.012A Strain of muscle, fascia and tendon of lower back, initial encounter; V43.62XA Car passenger injured in collision with other type car in traffic accident, initial encounter; F90.9 Attention-deficit hyperactivity disorder, unspecified type; Z79.899 Other long term (current) drug therapy
CPT/HCPCS: 99283